=== PATIENT | female | born 1950 | race Caucasian/White ===

== ENCOUNTER 2016-10-19 18:33 | Observation (INO) | payer MEDICARE, MEDICAID ==
[~2016-10-19] VITALS: Ht 167.6 cm; Wt 81.6 kg
[~2016-10-19 18:33] MED LIST: ACET325T51 PO; AMLO5TAB2 PO; ASCO-294 PO; ASPI81TA3 PO; ATOR10TA66 PO; BACL20TA PO; BISA10SU9 RC; CALC-467 PO; CARB15DR47 BOTH_EARS; CHLO1LIQ2 PO; CHOL10002 PO; CRAN405C PO; CRB200T PO; DESO15CR25 TOP; DOCU250C2 PO; DULO60CA61 PO; FERR-83 PO; FLUT16SP2 NS; GUAI5SYR PO; HYDR-4150 PO; INSU100C8 SUBQ; INSU100V7 SUBQ; KETO120S3 TOPICAL; LIDO28.35 TOP; LISI-567 PO; LORA10TA7 PO; MAGN400O4 PO; METO-272 PO; MULT-185 PO; OMEP-113 PO; PHN100C PO; POLY17PO6 PO; PREG75CA PO
[2016-10-19 18:43] VITALS: BP 146/67; PULSE 100; RESP 15; O2SAT 100
--- NOTE | 2016-10-19 18:47 | ED.REPORT ---
HPI-Seizure Date of Service Oct 19, 2016 ED Provider: Amalia Durán MD A 65 year old female with a history of hypertension, diabetes, MS, brain tumor removal, neoplasms of multiple organs, and seizures is brought to the ED via EMS due to a seizure. The pt lives at [facility], and has seizures regularly per staff. Staff became concerned today because the pt had 3 to 4 seizures in the morning and one later in the day that seemed worse than usual. She is able to speak at baseline, but is only nodding in the ED. The pt had a procedure on 10/17/2016 at [facility] for brain tumor removal. History is limited due to pt condition. Nursing Notes Stated Complaint: SEIZURES Chief Complaint: Seizure Nursing Notes Reviewed: Yes Allergies: Coded Allergies: Contrast Media (Verified Allergy, Severe, 10/19/16) ampicillin sodium (Verified Allergy, Severe, 10/19/16) povidone (Verified Allergy, Severe, 10/19/16) sulbactam sodium (Verified Allergy, Severe, 10/19/16) codeine (Verified Allergy, Mild, CANNOT REMEMBER, 10/19/16) pneumococcal vaccine (Verified Allergy, Mild, 10/19/16) povidone-iodine (Verified Allergy, Unknown, 10/19/16) soap (Verified Allergy, Unknown, 10/19/16) sulfamethoxazole (Verified Allergy, Unknown, 10/19/16) trimethoprim (Verified Allergy, Unknown, 10/19/16) Scheduled Amlodipine (Amlodipine) 5 Mg Tablet 5 MG PO DAILY Ascorbate Calcium (Vitamin C) 500 Mg Tablet 500 MG PO DAILY Aspirin Chew (Aspirin Chew) 81 Mg Tab.chew 81 MG PO DAILY Atorvastatin Calcium (Atorvastatin Calcium) 10 Mg Tablet 10 MG PO QPM Baclofen (Baclofen) 20 Mg Tablet 20 MG PO Q6 12AM,6AM,12PM,6PM. Calcium Carbonate/Vitamin D3 (Calcarb 600 W-Vitamin D Tab) 1 Each Tablet 1 EACH PO BID Carbamazepine (Carbamazepine) 200 Mg Tab 200 MG PO BID Carbamide Peroxide (Carbamide Peroxide) 15 Ml Drops 4 DRP BOTH_EARS MONTHLY MONTHLY EAR DROPS; INSTILL 4 DROPS IN EACH EAR FOR 3 DAYS THEN ON DAY 4 FLUSH WITH WARM H2O IN PM. Chlorhexidine (Chlorhexidine Flavor) 1 Ml Liquid 5 ML PO BID 0.12% RINSE. SWISH AND SPIT. Cholecalciferol (Vitamin D3) 1,000 Unit Tablet 3,000 UNIT PO DAILY Cranberry Extract (Cranberry) 405 Mg Capsule 810 MG PO BID Docusate Sodium (Docusate Sodium) 250 Mg Capsule 250 MG PO BID Duloxetine (Duloxetine) 60 Mg Capsule.dr 60 MG PO DAILY Ferrous Sulfate (Ferrous Sulfate) 325 Mg Tablet 325 MG PO TID Hydrocodone/Acetaminophen (Vona 5-325 Tablet) 1 Each Tablet 1 EACH PO QID Insulin Aspart (NovoLOG U100 Insulin Vial) 100 U/Ml U 28 UNIT SUBQ QAM WITH BREAKFAST. Insulin Aspart (NovoLOG U100 Insulin Vial) 100 U/Ml U 38 UNIT SUBQ DAILYWL Insulin Aspart (NovoLOG U100 Insulin Vial) 100 U/Ml U 40 UNIT SUBQ DAILYWD Insulin Glargine (Lantus U100 Insulin Vial) 100 Unit/Ml Vial 38 UNIT SUBQ QAM Insulin Glargine (Lantus U100 Insulin Vial) 100 Unit/Ml Vial 30 UNIT SUBQ DAILYWD Ketoconazole (Ketoconazole) 120 Ml Shampoo 1 APPLIC TOPICAL [id number] Lisinopril (Lisinopril) 20 Mg Tablet 20 MG PO DAILY Metoprolol Succinate ER (Metoprolol Succinate ER) 50 Mg Tab.er.24h 50 MG PO Q12 Multivitamin with Minerals (Multivitamins with Minerals) 1 Each Tablet 1 EACH PO DAILY Omeprazole Magnesium (Omeprazole) 20 Mg Capsule.dr 20 MG PO DAILY Phenytoin Sodium ER (Dilantin) 100 Mg Capsule 300 MG PO HS Phenytoin Sodium Extended (Phenytoin Sodium Extended) 200 Mg Capsule 400 MG PO QPM Pregabalin (Lyrica) 75 Mg Capsule 75 MG PO TID 8AM,12PM,8PM. Scheduled PRN Acetaminophen (Acetaminophen) 325 Mg Tablet 650 MG PO Q4 PRN PRN For Pain Bisacodyl (Bisacodyl Rectal) 10 Mg Supp.rect 10 MG RC DAILY PRN PRN For Constipation Desonide (Desonide Cream) 15 Gm Cream..g. 0.05 % TOP DAILY PRN PRN RASH 1 TIME A DAY TWO DAYS PER WEEK NEEDED. Fluticasone Propionate (Flonase Nasal) 16 Gm [place].susp 2 SPRAYS NS DAILY PRN PRN ALLERGIES Guaifenesin/Dextromethorphan (Guaifenesin Dm Syrup) 5 Ml Syrup 10 ML PO Q4 PRN PRN For Cough Lidocaine HCl (Lidocaine HCl) 28.35 Gm Cream..g. 4 % TOP DAILY PRN PRN 1 HR PRE CATH ACCESS APPLY TOPICALLY TO CATH SITE 1 HOUR BEFORE ACCESS. Loratadine (Loratadine) 10 Mg Tablet 10 MG PO DAILY PRN PRN ALLERGIES Magnesium Hydroxide (Milk of Magnesia) 400 Mg/5 Ml Oral.susp 30 ML PO DAILY PRN PRN For Constipation Polyethylene Glycol 3350 (Miralax) 17 Gm Powd.pack 17 GM PO Q3DAYS PRN PRN For Constipation General Time Seen by Provider: 18:46 Chief Complaint Chief Complaint: Seizure, generalized Hx Obtained From: EMS Arrived By: Ambulance Onset Occurred: More than a week ago... Recent Healthcare: Recent doctor visit, Recent hospitalization Similar Sx Previous: Yes Past Medical History Past Medical History 1. History of severe sepsis with shock, requiring pressors, Fever, lactic acidosis and encephalopathy resolved. 2. History of complicated urinary tract infection due to suprapubic catheter with multi-drug resistant organisms. 3. Multiple sclerosis with paraplegia and right sided deficits 4. Depression. Patient is on Cymbalta. 5. Chronic neuropathy. 6. Acute renal injury, likely acute tubular necrosis from septic shock, resolved. Patient's BUN and creatinine are normal. 7. History of hypertension. 8. Type 2 insulin dependent diabetes mellitus. 9. Chronic constipation with requiring manual disimpaction 12/02/14 10. Atonic bowel chronic 11. Atonic bladder chronic 12. MRSA nasal colonization. 13. chronic anemia 14. chronic contracture pain, wheelchair bound Past Surgical History Suprapubic catheter brain tumor removal Smoking History Former Smoker Social History Lives at [facility] Other Social History: Lives in longterm, Local resident Ambulatory Status Wheelchair Review of Systems Unable to Obtain ROS Patient condition (seizing, postictal) Physical Exam Initial Vital Signs Vital Signs (First) Date Time Temp Pulse Resp B/P Pulse Ox O2 Delivery O2 Flow Rate FiO2 10/19/16 18:43 100 15 146/67 100 Room Air 10/19/16 19:00 36.8 4 Initial VS: Reviewed, Vital signs abnormal actively seizing with nystagmus upon arrival in room localized to face Neck: Atraumatic, Supple Respiratory / Chest: Atraumatic, Breath sounds = bilat, No respiratory distress diminished breath sounds bilaterally Cardiovascular: Regular rhythm, Heart sounds NL Heart Rate / Rhythm: Positive: Tachycardia seizing, postictal Head / Eyes: Atraumatic, Normocephalic ENT: Atraumatic, Airway patent, Mucous membranes moist Abdomen: Atraumatic, Soft Upper Extremity / MS: Atraumatic Lower Extremity / Pelvis / MS: Atraumatic Skin: Atraumatic, Color NL, No rash, Warm, Dry seizing, postictal Back: Atraumatic Interpretation & Diagnostics Lab Results Interpretation Result Diagram: 10/19/16 1722 10/20/16 0435 Test 10/19/16 17:22 White Blood Count 11.5th/mm3 (3.8-10.1) Red Blood Count 4.98mil/mm3 (3.90-5.20) Hemoglobin 14.5g/dL (12.0-15.6) Hematocrit 43.7% (35.0-46.0) Mean Corpuscular Volume 87.8fL (81-100) Mean Corpuscular Hemoglobin 29.1pg (27.0-35.0) Mean Corpuscular Hemoglobin Concent 33.2% (32.0-37.0) Red Cell Distribution Width 15.5% (12.3-15.4) Platelet Count 177bil/L (150-400) Neutrophils (%) (Auto) 47.1% (40-74) Lymphocytes (%) (Auto) 42.3% (14-46) Monocytes (%) (Auto) 8.9% (4-12) Eosinophils (%) (Auto) 1.1% (0-5) Basophils (%) (Auto) 0.3% (0-3) Phenytoin (Dilantin) Level 5.7uG/mL (10.0-20.0) CT Head Interpretation IMPRESSION: 1. Left parietal mass with surrounding vasogenic edema is not significantly changed in size compared to CT scan obtained at 09 such as a 2016. 2. No acute intracranial hemorrhage. Dictated by: Jacqueline Bedoya MD, PhD on 10/19/2016 at 20:20 Approved by: Jacqueline Bedoya MD, PhD on 10/19/2016 at 20:20 Interpretation / Wet Read by: Interpret - Radiologist Re-Eval/Medical Decision Med Decision/Clinical Course Care assumed at midnight. Repeat blood gas shows improvement of the carbon dioxide to baseline. Patient is now bit more responsive but still nonverbal, as has been the case postop. Admitted for further observation to the medicine service. Additional fosphenytoin given to put her into the therapeutic range. This patient presents with multiple seizures today, according to her daughter she has not been having seizures daily and she is quite verbal. She had a seizure here in the emergency department. She was given 2 mg of Ativan. The patient's evaluation here reveals some vasogenicedema around the tumor however it is within normal limits, films were sent down to [facility] and they were reviewed and compared with other films. The patient was given dexamethasone and is subtherapeutic on Dilantin for which she was given 500 mg IV. In speaking with the resident, who spoke with [facility] attending specialist, it is felt the patient was safe for discharge with medicaiton changes. I also spoke with Dr. Sanchez, her primary care physician and he will follow-up with the patient. The patient seemed harder to wake than she should be, I was concerned about hypercapnea due hypoventilation related to the ativan she was given, the gas confirmed an acute respiratory acidosis. She had her oxygen decreased and within about an hour the patient was already becoming more responsive. I was going to admit the patient overnight for observation and further monitoring however we do not have a bed available. The patient was signed out to Dr. Velázquez, he will follow-up with a repeat venous gas and if it is improving and the patient will be discharged back to [facility]. The neuo/onc and radiation oncologist had recommended a dexamethasone taper of 4 mg 3 times a day for 4 days then 4 mg twice a day for 4 days then 4 mg daily for 4 days and lastly 2 mg daily for 4 days. They also recommended increasing her Dilantin to the extended release 400 mg at bedtime. The patient will need to have her glucoses monitored and a repeat Dilantin level, Dr. Longo is aware. Source of Hx: Old records Re-Evaluation/Progress #1: Time of Eval: 22:42 Re-Evaluation/Progress Note: Spoke with family regarding pt's possible transfer. They are updated on pt condition. The family understands the plan. Re-Evaluation/Progress #2: Time of Eval: 23:18 Patient Status: Condition improved Re-Evaluation/Progress Note: Pt rechecked, who is sleeping comfortably. Family is informed of [facility] consultation and the plan for discharge. Pt's family understands and agrees with the plan. All questions are addressed at this time. Re-Evaluation/Progress #3: Time of Eval: 00:06 Patient Status: Condition unchanged Re-Evaluation/Progress Note: Pt rechecked, who remains asleep. Pt's family is informed of blood gas results and the need for admission. Family understands and agrees with the plan. All questions are addressed at this time. Consultation #1: Call Returned at: 20:52 Front Desk Assistant: Agrees with eval Note: Spoke with [facility] [place] regarding pt's case. [facility] will review pt's case and call back. Consultation #2: Call Returned at: 22:10 Front Desk Assistant: Agrees with eval, Agrees with plan Note: Spoke with Dr. Daniels, [facility] neurology, regarding pt's case. Dr. Daniels will review imaging, consult with her attending, and call back. Consultation #3: Call Returned at: 23:14 Front Desk Assistant: Agrees with eval, Agrees with plan Note: Spoke with [facility] regarding pt's case. [facility] recommends discharge with medication alterations. Consultation #4: Referral / Consult Name: Jerry Longo DO Consulted With: Primary care physician Requested Call at: 23:21 Note: Spoke with Dr. Longo, pt's PCP, regarding pt's case. Dr. Longo agrees with the plan for admission. Counseled Regarding: Diagnosis, Lab results, Need for admission Discharge & Departure Impression: Primary Impression: Seizure Additional Impressions: Vasogenic brain edema Respiratory acidosis Subtherapeutic serum dilantin level Disposition: ADMITTED TO HOSPITAL Discharge Condition All VS Reviewed: Yes Condition: Stable Referrals: Noa Novoa MD (PCP) Jerry Longo DO Care Transferred to: Dr Velázquez. Care Transferred at: 00:48 Scribe Attestation Portions of this note were transcribed by Anabel Bishop. I, Dr. Durán personally performed the history, physical exam and medical decision-making; I reviewed and confirmed the accuracy of the information in the transcribed note. Signed by: Cayetano Ellis, 10/20/2016, 00:12 copies to: Jerry Longo DO; Noa Novoa MD, Jena M MD Oct 19, 2016 18:47 ANABEL BISHOP Oct 19, 2016 19:20 Darinel Velázquez MD Oct 20, 2016 05:53 Primary Impression: Seizure Additional Impressions: Vasogenic brain edema Respiratory acidosis Disposition: ADMITTED TO HOSPITAL Discharge Condition All VS Reviewed: Yes Condition: Stable Referrals: Noa Novoa MD (PCP) Jerry Longo DO Care Transferred to: Dr Velázquez. Care Transferred at: 00:48 Scribe Attestation Portions of this note were transcribed by Anabel Bishop. I, Dr. Durán personally performed the history, physical exam and medical decision-making; I reviewed and confirmed the accuracy of the information in the transcribed note. Signed by: Cayetano Ellis, 10/20/2016, 00:12 copies to: Jerry Longo DO; Noa Novoa MD, Jena M MD Oct 19, 2016 18:47 ANABEL BISHOP Oct 19, 2016 19:20
[2016-10-19 19:00] VITALS: BP 146/67; PULSE 110; RESP 17; O2SAT 100
[2016-10-19 19:45] VITALS: BP 138/76; PULSE 116; RESP 18; O2SAT 97
[2016-10-19] MEDS ORDERED: 0.9% Sodium Chloride 1,000 ML IV ONE (19:45)
[2016-10-19 20:00] LABS: BASOPHILS % (AUTO) 0.3 % (0-3); EOSINOPHILS % (AUTO) 1.1 % (0-5); MONOCYTES % (AUTO) 8.9 % (4-12); Mean Corpuscular Hemoglobin 29.1 pg (27.0-35.0); Mean Corpuscular Volume 87.8 fL (81-100); NEUTROPHILS % (AUTO) 47.1 % (40-74); Platelet Count 177 bil/L (150-400)
[2016-10-19 20:08] LABS: Magnesium 1.4 mg/dL (1.6-2.6)
--- NOTE | 2016-10-19 20:21 | DRSVH ---
PROCEDURE: CT BRAIN WITHOUT CONTRAST ([id number]) INDICATIONS: Sz, tumor TECHNIQUE: Noncontrast 4.5 mm thick angled axial sections acquired from the foramen magnum to the vertex, with c oronal reformats. COMPARISON: [facility], MR, MR BRAIN W&WO CON, 08/26/2016, 14:04. Outside Film, CT, CT BRAIN WO CON, 07/17/2016, 12:16. Outside Film, MR, MR BRAIN W&WO CON, 05/20/2016, 16:13. [facility], CT, CT BRAIN WO CON, 05/17/2016, 14:54. [facility], CT, CT BRAIN WO CON, 03/08, 4:03. [facility], CR, CHEST 1VW (PORTABLE), 09/17/2013, 10:32. [facility], MR, BRAIN W/O CONTRAST, 09/14/2013, 10:25. [facility], CT, BRAIN W/O CONTRAST, , 0:41. [facility], CT, BRAIN W/O CONTRAST, 12/15/2006, 10:55. [facility] , MR, BRAIN W&W/O CONTRAST, 09/16/2002, 13:03. FINDINGS: Image quality: Excellent. CSF spaces: Basal cisterns are patent. No extra-axial fluid collections. The ventricles are symmet lara in size and shape. Brain: Approximately 2.9 x 1. Left parietal mass is surrounded by vasogenic edema. No acute intrac ranial hemorrhage. .6 cm left parietal mass There is cerebral volume loss for age, with resultant ve ntricular and sulcal prominence. There are periventricular and deep white matter chronic small vesse l ischemic changes. There is intracranial internal carotid artery and right vertebral artery. athero sclerosis. Skull and face: Postsurgical changes compatible with left frontoparietal craniotomy are noted. Sinuses: Visualized sinuses and mastoids are clear. IMPRESSION: 1. Left parietal mass with surrounding vasogenic edema is not significantly changed in size compared to CT scan obtained at 09 such as a 2016. 2. No acute intracranial hemorrhage. Dictated by: Jacqueline Bedoya MD, PhD on 10/19/2016 at 20:20 Approved by: Jacqueline Bedoya MD, PhD on 10/19/2016 at 20:20
[2016-10-19] MEDS ORDERED: Magnesium Sulf 2 Gm/50mL Water 2 GM in IV Premix 1 EACH IV ONE (20:30)
[2016-10-19] MEDS ORDERED: Valproate Sodium Inj 500 MG in Dextrose 5% 50 ML IV ONE (20:30)
[2016-10-19] MEDS ORDERED: Dexamethasone Inj 10 MG in 0.9% Sodium Chloride-Pha MIX 50 ML IV ONE (20:30)
[2016-10-19 21:50] VITALS: BP 142/78; PULSE 110; RESP 16; O2SAT 96
[2016-10-19 23:00] VITALS: BP 138/84; PULSE 106; RESP 18; O2SAT 96
[2016-10-19] MEDS ORDERED: PHEN200C3 PO (23:30)
--- NOTE | 2016-10-19 23:53 | ABG ---
DateTimeAnalyzed 23:47:00 -_ pH ____7.274 - pCO2 ___63.0__ -mmHg pO2 ___58.3__ -mmHg HCO3- ___28.3__ -mmol/L ABE ____0.2__ -mmol/L tHb ___14.4__ -g/dL O2Hb ___85.0__ -% COHb ____0.4__ -% MetHb ____1.5__ -% sO2 ___86.6__ -% FIO2 ___35.0__ -% Drawn By MM - Date/Time Notified____ 23:52:00 -_ Liter_Flow ____4.0__ -L/min Oxygen Device 1 __CANNULA - Notified Whom DEMETRIUS, HYUN - Age 59 -years B 753 -mmHg tO2 ___17.1__ -Vol% OrderingPhysicianInitials JL - Emigdio test N/A -
[2016-10-20] VITALS (10 sets, daily range): BP systolic 110–145; BP diastolic 53–73; PULSE 88–117; RESP 18–22; O2SAT 93–97
[2016-10-20] MEDS ORDERED: Albuterol-Ipratropium 3 mL Inhalation Solution NEB ONE (00:05)
[2016-10-20] MEDS ORDERED: Fosphenytoin Inj 500 mgPE in 0.9% Sodium Chloride 50 ML IV ONE (01:15)
--- NOTE | 2016-10-20 01:53 | ABG ---
DateTimeAnalyzed 01:47:00 -_ pH ____7.408 - pCO2 ___32.9__ -mmHg pO2 243 -mmHg HCO3- ___20.3__ -mmol/L ABE ___-3.2__ -mmol/L tHb ___11.0__ -g/dL O2Hb ___95.9__ -% COHb ____1.5__ -% MetHb ____1.4__ -% sO2 ___98.8__ -% FIO2 ___21.0__ -% Drawn By MM - Date/Time Notified____ 01:53:00 -_ Liter_Flow ____2.0__ -L/min Oxygen Device 1 __CANNULA - Notified Whom DR Velázquez - Age 59 -years B 754 -mmHg tO2 ___15.4__ -Vol% Emigdio test N/A -
[2016-10-20] MEDS ORDERED: guaiFENesin DM 200-20 mg/10 mL Syrup PO PRN (02:50)
[2016-10-20] MEDS ORDERED: Magnesium Hydroxide 355 mL Oral Suspension PO PRN (02:50)
[2016-10-20] MEDS ORDERED: Polyethylene Glycol (PEG) 17 Gm Powder PO PRN ×2 (02:50→02:55)
[2016-10-20] MEDS ORDERED: Fluticasone 0.05% 15 Spray/2 Gm 16 Gm Nasal Spray NOSTRIL PRN (02:50)
[2016-10-20] MEDS ORDERED: Alum-Mag Hydrox-Simeth 30 mL Suspension PO PRN (02:55)
[2016-10-20] MEDS ORDERED: Ondansetron 2 mg/mL 2 mL Inj IVPUSH PRN (02:55)
--- NOTE | 2016-10-20 03:17 | PCM.HPMED ---
Subjective Date of Service Oct 20, 2016 Primary Provider: Admitting Physician: Primary Care Physician: Noa Novoa MD Attending Physician: Admit Status: From the Emergency Department, 23-Hour Observation Chief Complaint: Multiple seizures today History of Present Illness: This is a 65-year-old female who has a history of multiple sclerosis history of meningioma with removal and recent gamma knife surgery at [facility] on Thursday. She normally has seizures and is currently a resident of [facility]. However today she had 3-4 seizures in the morning and one later in the day that seemed worse than usual and more prolonged. And she was brought in to the emergency room for further evaluation here. She was found to have a subtherapeutic Dilantin level at 0.7. She was given a load of IV Dilantin in the emergency room where studies included a CT of head which did reveal left parietal mass with surrounding vasogenic edema which is not significantly changed in comparison to previous acute intracranial hemorrhage noted. His findings were discussed by ER M.D. with [facility] recommended a dexamethasone taper 4 mg 3 times a day for 4 days then 4 mg twice a day for 4 days then 1 correction 4 mg daily for 4 days and lastly 2 mg daily for 4 days. They also recommended increasing her Dilantin to the extended release 400 mg at bedtime. They did suggest that it would be fine to have her discharged back to [facility]. However the ER felt more comfortable putting her into observation and she still postictal. She was also found to have some respiratory acidosis and initially I recommended BiPAP however with further monitoring per ER M.D. her blood gas no longer showed a respiratory acidosis. Hence will be admitted to a regular bed for observation. Review of Systems: Unobtainable secondary to patient's post ictal state Allergies Coded Allergies: Contrast Media (Verified Allergy, Severe, 10/19/16) ampicillin sodium (Verified Allergy, Severe, 10/19/16) povidone (Verified Allergy, Severe, 10/19/16) sulbactam sodium (Verified Allergy, Severe, 10/19/16) codeine (Verified Allergy, Mild, CANNOT REMEMBER, 10/19/16) pneumococcal vaccine (Verified Allergy, Mild, 10/19/16) povidone-iodine (Verified Allergy, Unknown, 10/19/16) soap (Verified Allergy, Unknown, 10/19/16) sulfamethoxazole (Verified Allergy, Unknown, 10/19/16) trimethoprim (Verified Allergy, Unknown, 10/19/16) Home Medications Scheduled Amlodipine (Amlodipine) 5 Mg Tablet 5 MG PO DAILY Ascorbate Calcium (Vitamin C) 500 Mg Tablet 500 MG PO DAILY Aspirin Chew (Aspirin Chew) 81 Mg Tab.chew 81 MG PO DAILY Atorvastatin Calcium (Atorvastatin Calcium) 10 Mg Tablet 10 MG PO QPM Baclofen (Baclofen) 20 Mg Tablet 20 MG PO Q6 12AM,6AM,12PM,6PM. Calcium Carbonate/Vitamin D3 (Calcarb 600 W-Vitamin D Tab) 1 Each Tablet 1 EACH PO BID Carbamazepine (Carbamazepine) 200 Mg Tab 200 MG PO BID Carbamide Peroxide (Carbamide Peroxide) 15 Ml Drops 4 DRP BOTH_EARS MONTHLY MONTHLY EAR DROPS; INSTILL 4 DROPS IN EACH EAR FOR 3 DAYS THEN ON DAY 4 FLUSH WITH WARM H2O IN PM. Chlorhexidine (Chlorhexidine Flavor) 1 Ml Liquid 5 ML PO BID 0.12% RINSE. SWISH AND SPIT. Cholecalciferol (Vitamin D3) 1,000 Unit Tablet 3,000 UNIT PO DAILY Cranberry Extract (Cranberry) 405 Mg Capsule 810 MG PO BID Docusate Sodium (Docusate Sodium) 250 Mg Capsule 250 MG PO BID Duloxetine (Duloxetine) 60 Mg Capsule.dr 60 MG PO DAILY Ferrous Sulfate (Ferrous Sulfate) 325 Mg Tablet 325 MG PO TID Hydrocodone/Acetaminophen (Chelsea 5-325 Tablet) 1 Each Tablet 1 EACH PO QID Insulin Aspart (NovoLOG U100 Insulin Vial) 100 U/Ml U 28 UNIT SUBQ QAM WITH BREAKFAST. Insulin Aspart (NovoLOG U100 Insulin Vial) 100 U/Ml U 38 UNIT SUBQ DAILYWL Insulin Aspart (NovoLOG U100 Insulin Vial) 100 U/Ml U 40 UNIT SUBQ DAILYWD Insulin Glargine (Lantus U100 Insulin Vial) 100 Unit/Ml Vial 38 UNIT SUBQ QAM Insulin Glargine (Lantus U100 Insulin Vial) 100 Unit/Ml Vial 30 UNIT SUBQ DAILYWD Ketoconazole (Ketoconazole) 120 Ml Shampoo 1 APPLIC TOPICAL [id number] Lisinopril (Lisinopril) 20 Mg Tablet 20 MG PO DAILY Metoprolol Succinate ER (Metoprolol Succinate ER) 50 Mg Tab.er.24h 50 MG PO Q12 Multivitamin with Minerals (Multivitamins with Minerals) 1 Each Tablet 1 EACH PO DAILY Omeprazole Magnesium (Omeprazole) 20 Mg Capsule.dr 20 MG PO DAILY Phenytoin Sodium ER (Dilantin) 100 Mg Capsule 300 MG PO HS Phenytoin Sodium Extended (Phenytoin Sodium Extended) 200 Mg Capsule 400 MG PO QPM Pregabalin (Lyrica) 75 Mg Capsule 75 MG PO TID 8AM,12PM,8PM. Scheduled PRN Acetaminophen (Acetaminophen) 325 Mg Tablet 650 MG PO Q4 PRN PRN For Pain Bisacodyl (Bisacodyl Rectal) 10 Mg Supp.rect 10 MG RC DAILY PRN PRN For Constipation Desonide (Desonide Cream) 15 Gm Cream..g. 0.05 % TOP DAILY PRN PRN RASH 1 TIME A DAY TWO DAYS PER WEEK NEEDED. Fluticasone Propionate (Flonase Nasal) 16 Gm Homer.susp 2 SPRAYS NS DAILY PRN PRN ALLERGIES Guaifenesin/Dextromethorphan (Guaifenesin Dm Syrup) 5 Ml Syrup 10 ML PO Q4 PRN PRN For Cough Lidocaine HCl (Lidocaine HCl) 28.35 Gm Cream..g. 4 % TOP DAILY PRN PRN 1 HR PRE CATH ACCESS APPLY TOPICALLY TO CATH SITE 1 HOUR BEFORE ACCESS. Loratadine (Loratadine) 10 Mg Tablet 10 MG PO DAILY PRN PRN ALLERGIES Magnesium Hydroxide (Milk of Magnesia) 400 Mg/5 Ml Oral.susp 30 ML PO DAILY PRN PRN For Constipation Polyethylene Glycol 3350 (Miralax) 17 Gm Powd.pack 17 GM PO Q3DAYS PRN PRN For Constipation PMH Past Medical History 1. History of severe sepsis with shock, requiring pressors, Fever, lactic acidosis and encephalopathy resolved. 2. History of complicated urinary tract infection due to suprapubic catheter with multi-drug resistant organisms. 3. Multiple sclerosis with paraplegia and right sided deficits 4. Depression. Patient is on Cymbalta. 5. Chronic neuropathy. 6. Acute renal injury, likely acute tubular necrosis from septic shock, resolved. Patient's BUN and creatinine are normal. 7. History of hypertension. 8. Type 2 insulin dependent diabetes mellitus. 9. Chronic constipation with requiring manual disimpaction 12/02/14 10. Atonic bowel chronic 11. Atonic bladder chronic 12. MRSA nasal colonization. 13. chronic anemia 14. chronic contracture pain, wheelchair bound Past Surgical History Suprapubic catheter brain tumor removal Social History Hx Alcohol Use: No Hx Substance Use: No Hx Tobacco Use: No Smoking Status: Former Smoker Living Arrangement: [facility] Exam Vital Signs Vital Sign - Last Date Time Temp Pulse Resp B/P Pulse Ox O2 Delivery O2 Flow Rate FiO2 10/20/16 01:12 37.4 116 22 126/53 95 Nasal Cannula 2 Intake and Output 10/19/16 10/19/16 10/20/16 Cumulative From/Thru 15:00 23:00 07:00 10/19/16 19:55 - 10/19/16 21:05 Intake Total 1150 ml 1150 ml Balance 1150 ml 1150 ml Intake IV Total 1150 ml 1150 ml Exam Constitutional: Middle-aged woman who looks older than her stated age Head: No acute injuries to her head Eyes: Difficult to get her to open up her eyes pupils are round and reactive bilaterally Mouth: Dry mucosa neck: No adenopathy chest: Clear to auscultation except decreased breath sounds at her bases bilaterally cor: Regular rate and rhythm S1-S2 Abdomen: Soft bowel sounds present Extremities: No pedal edema Psych: Unable to evaluate Skin: No rashes noted Neuro: She does arouse to some voice and painful stimuli oriented 0 Does have some contractions of her right upper arm and lower extremities Lab and Diagnostics Labs Urine analysis pending at the time of this dictation Laboratory Tests 72 Hours Test 10/19/16 17:22 White Blood Count 11.5th/mm3 (3.8-10.1) Red Blood Count 4.98mil/mm3 (3.90-5.20) Hemoglobin 14.5g/dL (12.0-15.6) Hematocrit 43.7% (35.0-46.0) Mean Corpuscular Volume 87.8fL (81-100) Mean Corpuscular Hemoglobin 29.1pg (27.0-35.0) Mean Corpuscular Hemoglobin Concent 33.2% (32.0-37.0) Red Cell Distribution Width 15.5% (12.3-15.4) Platelet Count 177bil/L (150-400) Neutrophils (%) (Auto) 47.1% (40-74) Lymphocytes (%) (Auto) 42.3% (14-46) Monocytes (%) (Auto) 8.9% (4-12) Eosinophils (%) (Auto) 1.1% (0-5) Basophils (%) (Auto) 0.3% (0-3) Sodium Level 136mEq/L (134-144) Potassium Level 4.1mEq/L (3.5-5.2) Chloride Level 97mEq/L (97-108) Carbon Dioxide Level 26mmol/L (18-29) Blood Urea Nitrogen 9mg/dL (8-27) Creatinine 0.53mg/dL (0.57-1.00) Estimat Glomerular Filtration Rate 167mL/min (>59) Glucose Level 250mg/dL (60-99) Calcium Level 9.0mg/dL (8.5-10.1) Magnesium Level 1.4mg/dL (1.6-2.6) Phenytoin (Dilantin) Level 5.7uG/mL (10.0-20.0) Result Diagram: 10/19/16172110/19/16 172 X-Rays, CTs and MRIs Patient Name: ALBIN ASHBY MR#: [id number] [place] [facility] [place]ing Phys: Amalia Durán MD Date of Service: 10/19/161943 PROCEDURE: CT BRAIN WITHOUT CONTRAST ([id number]) INDICATIONS: Sz, tumor TECHNIQUE: Noncontrast 4.5 mm thick angled axial sections acquired from the foramen magnum to the vertex, with coronal reformats. COMPARISON: [facility], MR, MR BRAIN W&WO CON, 08/26/2016, 14:04. Outside Film, CT, CT BRAIN WO CON, 07/17/2016, 12:16. Outside Film, MR, MR BRAIN W&WO CON, 05/20/2016, 16:13. [facility], CT, CT BRAIN WO CON, 05/17/2016, 14:54. [facility], CT, CT BRAIN WO CON, 03/08/2016, 4: 03. [facility], CR, CHEST 1VW (PORTABLE), 09/17/2013, 10:32. [facility], MR, BRAIN W/O CONTRAST, 09/14/2013, 10:25. [facility], CT, BRAIN W/O CONTRAST, 09/14/2013, 0:41. [facility], CT, BRAIN W/O CONTRAST, 12/15/2006, 10:55. [facility] , MR, BRAIN W&W/O CONTRAST, 09/16/2002, 13:03. FINDINGS: Image quality: Excellent. CSF spaces: Basal cisterns are patent. No extra-axial fluid collections. The ventricles are symmetric in size and shape. Brain: Approximately 2.9 x 1. Left parietal mass is surrounded by vasogenic edema. No acute intracranial hemorrhage. .6 cm left parietal mass There is cerebral volume loss for age, with resultant ventricular and sulcal prominence. There are periventricular and deep white matter chronic small vessel ischemic changes. There is intracranial internal carotid artery and right vertebral artery. atherosclerosis. Skull and face: Postsurgical changes compatible with left frontoparietal craniotomy are noted. Sinuses: Visualized sinuses and mastoids are clear. IMPRESSION: 1. Left parietal mass with surrounding vasogenic edema is not significantly changed in size compared to CT scan obtained at 09 such as a 2016. 2. No acute intracranial hemorrhage. Dictated by: Jacqueline Bedoya MD, PhD on 10/19/2016 at 20:20 Approved by: Jacqueline Bedoya MD, PhD on 10/19/2016 at 20:20 Chest x-ray is pending 12-lead ECG Pending Additional Diagnostics: [facility] ALBIN ASHBY 1950 Female DateTimeAnalyzed 23:47:00 -_ pH ____7.274 - pCO2 ___63.0__ -mmHg pO2 ___58.3__ -mmHg HCO3- ___28.3__ -mmol/L ABE ____0.2__ -mmol/L tHb ___14.4__ -g/dL O2Hb ___85.0__ -% COHb ____0.4__ -% MetHb ____1.5__ -% sO2 ___86.6__ -% FIO2 ___35.0__ -% Drawn By MM - Date/Time Notified____ 23:52:00 -_ Liter_Flow ____4.0__ -L/min Oxygen Device 1 __CANNULA - Notified Whom DEMETRIUS, ASA'CARSARMIUT - Age 59 -years B 753 -mmHg tO2 ___17.1__ -Vol% OrderingPhysicianInitials JL - Emigdio test N/A - [facility] 1950 Female DateTimeAnalyzed 01:47:00 -_ pH ____7.408 - pCO2 ___32.9__ -mmHg pO2 243 -mmHg HCO3- ___20.3__ -mmol/L ABE ___-3.2__ -mmol/L tHb ___11.0__ -g/dL O2Hb ___95.9__ -% COHb ____1.5__ -% MetHb ____1.4__ -% sO2 ___98.8__ -% FIO2 ___21.0__ -% Drawn By MM - Date/Time Notified____ 01:53:00 -_ Liter_Flow ____2.0__ -L/min Oxygen Device 1 __CANNULA - Notified Whom DR Velázquez - Age 59 -years B 754 -mmHg tO2 ___15.4__ -Vol% Emigdio test N/A - Assessment & Plan # Multiple seizures with seizure history, present on admission, acute on chronic Currently postictal place and seizure precautions and observe overnight Patient was given IV Dilantin load will check level in the a.m. Consider increasing her oral dose as mentioned above [facility] was contacted and recommended Decadron titration as noted inHistory of present illness: # Meningioma, subacute, present on admission Currently managed by [facility] neurosurgery Recently underwent gamma knife surgery on Thursday # Type II diabetes, chronic, present on admission Continue her current medication regimen of insulin subcutaneous While postictal and not taking orals we will give IV D5 half-normal saline Monitor 4 times a day blood sugars Also will need to monitor for elevated blood sugar with initiation of Decadron # Hyperlipidemia, chronic, present on admission Continue home medication regimen # Multiple sclerosis, chronic, present on admission Continue current medication regimen once able to take by mouth # DVT prophylaxis We will use SCDs while here # CODE STATUS Unable to locate pulse form at this point hence is full code Will need to get information from [facility] Pain Evaluation: Adequate Pain Control GI Prophylaxis: H2 jami VTE Mechanical Devices: Intermittant Pneumatic CD Resuscitation Status: CPR: Attempt Resuscitation Sadaf Henderson MD Oct 20, 2016 03:17
[2016-10-20] MEDS ORDERED: HYDROcodone-APAP 5-325 mg Tablet PO PRN (03:40)
[2016-10-20 05:12] LABS: Magnesium 1.7 mg/dL (1.6-2.6); Phosphorus 2.8 mg/dL (2.5-4.9); TROPONIN T 0.01 ug/L (0.0-0.011)
[2016-10-20] MEDS: D5 0.45% NaCl + KCl 20 mEq/L 1,000 ML IV SCH ×2 (05:16→11:59)
--- NOTE | 2016-10-20 05:49 | NUR ---
Admit/Mentation/ Pt was admitted to [facility] @ around 0430. Pt is alert and oriented to self but is confused on present situation and don't know what is going on, Tried re-orienting, pt could verbalize understanding but would forget the recent conversation immediately. Noted short term memory loss per assessment. Assessed pt's lower leg for sensation and pt barely feels anything. Pt denies chest pain, SOB, N/V and abd discomfort. IVF administered as ordered of MD. Pressure ulcer protocol initiated. Will put pt on p500 bed. Will continue to monitor.
[2016-10-20] MEDS: Acetaminophen IV 1,000 MG in IV Premix 1 EACH IV PRN ×2 (05:59→11:57)
--- NOTE | 2016-10-20 07:09 | DRSVH ---
PROCEDURE: X-RAY CHEST ONE VIEW, PORTABLE ([id number]) INDICATIONS: 65 year-old female with seizures and hypoventilation. TECHNIQUE: One view of the chest was acquired. COMPARISON: [facility], CR, XR CHEST 1VW (PORTABLE), 05/26/2016, 12:25. [facility], CR, XR CHEST 1VW (PORTABLE), 05/17/2016, 17:14. [facility], CR, XR CHEST 1VW (POR TABLE), 05/17/2016, 14:35. FINDINGS: Surgical changes and devices: Right chest wall Port-A-Cath is again noted, with tip at the cavoatrial junction. Patient is status post right axillary lymph node dissection and cholecystectomy. Lungs and pleura: No pleural effusions or pneumothorax. Lungs are clear. Lung volumes are decrease d. Mediastinum: Mediastinal contours appear normal. Heart size is normal. Bones and chest wall: No suspicious bony lesions. There is persistent asymmetric right hemidiaphrag m elevation. Overlying soft tissues appear unremarkable. IMPRESSION: 1. Decreased lung volumes, without acute cardiopulmonary disease. 2. Persistent right hemidiaphragm elevation they reflect chronic right phrenic nerve dysfunction or u nderlying liver pathology. Dictated by: Darrin Laws M.D. on 10/20/2016 at 7:07 Approved by: Darrin Laws M.D. on 10/20/2016 at 7:07
[2016-10-20] MEDS ORDERED: Pantoprazole 20 mg ER24 Tablet PO SCH (08:30)
[2016-10-20] MEDS ORDERED: Insulin GLARgine 100 Unit/mL Syringe SUBQ SCH ×2 (08:30→17:30)
[2016-10-20] MEDS ORDERED: DULoxetine 30 mg DR Capsule PO SCH (08:30)
[2016-10-20] MEDS ORDERED: Insulin LISPRO 300 Unit/3 mL Inj SUBQ SCH ×3 (08:30→17:30)
[2016-10-20] MEDS ORDERED: Ascorbic Acid 500 mg Tablet PO SCH (08:30)
[2016-10-20] MEDS ORDERED: Dexamethasone 4 mg/mL Inj IVPUSH SCH (08:30)
[2016-10-20] MEDS ORDERED: MeTOProlol XL 50 mg ER24 Tablet PO SCH (08:30)
[2016-10-20] MEDS ORDERED: Chlorhexidine 0.12% 473 mL Oral Solution MUC_MEMBRM SCH (08:30)
[2016-10-20] MEDS ORDERED: CRANBERRY EXTRACT PO SCH (08:30)
[2016-10-20] MEDS ORDERED: carBAMazepine 200 mg Tablet PO SCH (08:30)
[2016-10-20 09:01] LABS: Magnesium 1.7 mg/dL (1.6-2.6)
--- NOTE | 2016-10-20 09:25 | NUR ---
Social Work-initial assessment/ readiness for discharge: Data:See initial assessment. Pt is a 65 y/o female who was admitted on 10/20/16 for respiratory acidosis per H&P. Pt's insurance is [email or web address] and PCP is Noa Novoa MD. EMR Reviewed. SW met with pt at bedside to discuss discharge planning, SW role explained. Pt is alert and oriented x3. Pt resides at [facility]( [facility]) and plans on returning back to [facility] when medically stable. SW placed a call to [facility] and left message regarding pt. Paperwork placed in the chart. SW will continue to follow. Assessment:pt who resides at [facility]. Plan:Pt to discharge back to [facility] when medically stable. SW has left message for admissions regarding pt. Paperwork placed in the chart. SW will continue to follow. DANIELE Aranda Addendum: 10/20/16 at 0930 by KEAGAN MCFADDEN Amended: Links added.
[2016-10-20] MEDS: Calcium Carbonate (Oyster Shell) 500 mg Tablet PO SCH ×2 (10:29→17:07)
[2016-10-20] MEDS: Famotidine Inj 20 MG in IV Premix 1 EACH IV SCH ×2 (11:24→20:44)
[2016-10-20] MEDS: Insulin Human REGular 300 Unit/3 mL Inj SUBQ SCH ×3 (12:01→22:00)
--- NOTE | 2016-10-20 13:31 | NUR ---
Evaluation completed. Please go to "Notes" then click on "Assessments and Notes" (bottom left corner of screen). Then select appropriate discipline tab on top of screen.
[2016-10-20] MEDS ORDERED: 0.9% Sodium Chloride 250 ML ONE (14:59)
[2016-10-20 16:12] LABS: APPEARANCE,URINE CLOUDY (CLEAR,HAZY); COLOR,URINE YELLOW (YELLOW); OCCULT BLOOD,URINE NEGATIVE (NEGATIVE); UROBILINOGEN,URINE NORMAL (NORMAL)
--- NOTE | 2016-10-20 16:56 | NUR ---
Case Management: Observation Brochure explained and provided to patient and her daughter, all questions answered. Geraldine Vale RN
[2016-10-20] MEDS: Dexamethasone 4 mg/mL Inj IVPUSH SCH ×2 (17:07→22:32)
[2016-10-20] MEDS ORDERED: METO25TA6 PO (18:07)
[2016-10-20] MEDS ORDERED: INSLIS SUBQ ×2 (18:07)
[2016-10-20] MEDS ORDERED: CHOL500011 PO (18:07)
[2016-10-20] MEDS ORDERED: LOPE2CAP PO (18:07)
[2016-10-20] MEDS ORDERED: PRAM177L22 TP (18:07)
[2016-10-20] MEDS ORDERED: HYDR-4003 PO (18:07)
[2016-10-20] MEDS ORDERED: [UNRECOGNIZED DRUG - CODE] PO (18:07)
[2016-10-20] MEDS ORDERED: SENN-133 PO (18:07)
[2016-10-20] MEDS ORDERED: PANT40TA3 PO (18:07)
[2016-10-20] MEDS ORDERED: BISA10SU61 RC (18:07)
[2016-10-20] MEDS ORDERED: PHEN300C4 PO (18:07)
[2016-10-20] MEDS ORDERED: DOCU250C2 PO (18:07)
[2016-10-20] MEDS ORDERED: PRAM0.256 PO (18:07)
[2016-10-20] MEDS ORDERED: INSU100V7 SUBQ (18:24)
--- NOTE | 2016-10-20 19:03 | NUR ---
Mentation/gonzalez/blood sugars/meds Pt alert to self, knows shes in a hospital. Pt forgetful, tends to ask same question after ~30 seconds despite question being answered. Dtr in this afternoon and states at baseline pt is A&Ox4. Suprapubic gonzalez patent, draining yellow urine. Pt reports no c/o r/t to gonzalez. Blood sugar this AM 189. Pt had large amount of quick-acting insulin which was held due to NPO status as was lunch large amount of insulin. Noon blood sugar 235. Discussed large amount of insulin with MD who voiced concerns with steroid raising blood sugars and insulin managing that rise. Dinner blood sugar 271, pt had a diet order from lunch so 40 units of insulin given per eMAR, double checked with another RN. Shortly after, admit nurse up to unit and notified this RN that insulin orders and a variety of medications were not matched to what was being given at facility. Rechecked blood sugar at 1800 - 206. Pt asymptomatic and ate dinner. Passed onto oncoming RN to monitor blood sugars and ensure medications are corrected in eMAR prior to administering. Bed in lowest, locked position and call light in reach.
--- NOTE | 2016-10-20 19:03 | NUR ---
home medications/med rec arrived to follow up on patient home medication list as follow up from overnight admit. utilized physician orders from [facility]. noted that date was august 2016. called [facility] to obtain current physician orders or MAR. facility refused to send a MAR. stated "it is against our policy to send a MAR". staff agreed to go over current med list over the phone. went over entire list with restaurant front manager staff Bree and then requested to speak with patient's nurse to confirm. spoke with Edelmira DOUGHERTY and again went over entire list with last dosages included. [facility] minimal discrepancies from physician orders that were sent with patient from August 2016. upon entering home medication list noted that admitting hospitalist had ordered home medications from med rec list last night before it had been updated. Dr. Bruce called and notified and spoke with Dr. Bruce in person regarding the discrepancies in current home medication list and what had been ordered. went over in great detail with Dr. Bruce both verbally and in writing. notified Dr. Bruce that lyrica is QID not TID, Docusate is 250mg po daily, not BID, patient takes metoprolol tartrate 25mg po bid, not succinate 50mg po bid, patient takes pramipexole as a newer medication, vitamin d is 5000units per day not 3000, miralax is prn not scheduled. Dr. Bruce additionally notified that patient no longer takes amlodipine, vitamin c, aspirin, calcium/carb, tegretol, ear drops, chlorhexidine rinse, cranberry, duloxetine, iron, flonase, ketoconozole shampoo, lisinopril, loratidine and multivitamin. Additionally notified that patient current insulin routine is lantus 5 units at HS and 2 different humalog sliding scales for meals and at bedtime. Notified Dr. Bruce that patient no longer takes scheduled novolog or the previous dose of lantus. Dr. Bruce states understanding and to review current updated home medication list in medication reconciliation screen. primary RN jossue Mendez notified and updated to all of the above also.
--- NOTE | 2016-10-20 19:51 | PCM.PNMED ---
Subjective Date of Service Oct 20, 2016 Subjective Patient is in good spirits and was unaware that she has a temperature of 38.3 C. She is fully awake and alert and able to sing a [place] Song to me and the nurse Monica. She has no new complaints. Exam Vital Signs Vital Sign - Last Date Time Temp Pulse Resp B/P Pulse Ox O2 Delivery O2 Flow Rate FiO2 10/20/16 15:55 37.3 99 20 122/68 93 Nasal Cannula 2.00 Intake and Output 10/19/16 10/19/16 10/20/16 Cumulative From/Thru 15:00 23:00 07:00 10/19/16 19:55 - 10/20/16 06:45 Intake Total 1150 ml 0 ml 1150 ml Output Total 650 ml 650 ml Balance 1150 ml -650 ml 500 ml Intake Oral 0 ml 0 ml IV Total 1150 ml 1150 ml Output Urine Total 650 ml 650 ml Exam General: Patient is comfortable laying supine in bed HEENT: Head: Examination of the head reveals markings from previous gamma knife surgery. Head is normocephalic. Eyes: Pupils are equally round and reactive to light and accommodation. Extraocular muscles are intact. Sclera are white anicteric. Subconjunctival mucosa is pink. Ears and nose are unremarkable. Oropharynx: There is no mucosal lesions, there is no thrush, there is no pharyngitis. Neck: Is supple, there are no nodes, or masses or tenderness. Chest: Is clear to auscultation and percussion. There are no rales, rhonchi, wheezes or rubs. Heart: Rate, rhythm is regular. There is no murmur, rub or gallop. Abdomen: Good bowel sounds are present. Abdomen is soft, nontender, no organomegaly or masses were appreciated. Extremities: Are symmetrical and well perfused. There is no edema, there is no cellulitis, no rash. There is bilateral foot drop Neurologic: There is flexion contracture of the right upper extremity. Patient does exhibit some strength with a partial ability to tuyere fitter the right hand. However, she can no longer extend her right upper extremity at the elbow. Cranial nerves II through XII are intact. Patient is unable to move her lower extremities. She has full movement and range of motion of her left upper extremity. Psychiatric: Patients mood is calm and shows no sign of agitation. Genital: Deferred Rectal: Deferred Lab and Diagnostics Result Diagram: 10/19/16 1722 10/20/16 0435 X-Rays, CTs and MRIs Patient Name: ALBIN ASHBY MR#: [id number] Location: [facility] [place] Ordering Phys: Amalia Durán MD Date of Service: 10/19/161943 PROCEDURE: CT BRAIN WITHOUT CONTRAST ([id number]) INDICATIONS: Sz, tumor TECHNIQUE: Noncontrast 4.5 mm thick angled axial sections acquired from the foramen magnum to the vertex, with coronal reformats. COMPARISON: [facility], MR, MR BRAIN W&WO CON, 08/26/2016, 14:04. Outside Film, CT, CT BRAIN WO CON, 07/17/2016, 12:16. Outside Film, MR, MR BRAIN W&WO CON, 05/20/2016, 16:13. [facility], CT, CT BRAIN WO CON, 05/17/2016, 14:54. [facility], CT, CT BRAIN WO CON, 03/08/2016, 4: 03. [facility], CR, CHEST 1VW (PORTABLE), 09/17/2013, 10:32. [facility], MR, BRAIN W/O CONTRAST, 09/14/2013, 10:25. [facility], CT, BRAIN W/O CONTRAST, 09/14/2013, 0:41. [facility], CT, BRAIN W/O CONTRAST, 12/15/2006, 10:55. [facility] , MR, BRAIN W&W/O CONTRAST, 09/16/2002, 13:03. FINDINGS: Image quality: Excellent. CSF spaces: Basal cisterns are patent. No extra-axial fluid collections. The ventricles are symmetric in size and shape. Brain: Approximately 2.9 x 1. Left parietal mass is surrounded by vasogenic edema. No acute intracranial hemorrhage. .6 cm left parietal mass There is cerebral volume loss for age, with resultant ventricular and sulcal prominence. There are periventricular and deep white matter chronic small vessel ischemic changes. There is intracranial internal carotid artery and right vertebral artery. atherosclerosis. Skull and face: Postsurgical changes compatible with left frontoparietal craniotomy are noted. Sinuses: Visualized sinuses and mastoids are clear. IMPRESSION: 1. Left parietal mass with surrounding vasogenic edema is not significantly changed in size compared to CT scan obtained at 09 such as a 2016. 2. No acute intracranial hemorrhage. Dictated by: Jacqueline Bedoya MD, PhD on 10/19/2016 at 20:20 Approved by: Jacqueline Bedoya MD, PhD on 10/19/2016 at 20:20 PROCEDURE: X-RAY CHEST ONE VIEW, PORTABLE ([id number]) INDICATIONS: 65 year-old female with seizures and hypoventilation. TECHNIQUE: One view of the chest was acquired. COMPARISON: [facility], CR, XR CHEST 1VW (PORTABLE), 05/26/2016, 12: 25. [facility], CR, XR CHEST 1VW (PORTABLE), 05/17/2016, 17:14. [facility], CR, XR CHEST 1VW (PORTABLE), 05/17/2016, 14:35. FINDINGS: Surgical changes and devices: Right chest wall Port-A-Cath is again noted, with tip at the cavoatrial junction. Patient is status post right axillary lymph node dissection and cholecystectomy. Lungs and pleura: No pleural effusions or pneumothorax. Lungs are clear. Lung volumes are decreased. Mediastinum: Mediastinal contours appear normal. Heart size is normal. Bones and chest wall: No suspicious bony lesions. There is persistent asymmetric right hemidiaphragm elevation. Overlying soft tissues appear unremarkable. IMPRESSION: 1. Decreased lung volumes, without acute cardiopulmonary disease. 2. Persistent right hemidiaphragm elevation they reflect chronic right phrenic nerve dysfunction or underlying liver pathology. Dictated by: Darrin Laws M.D. on 10/20/2016 at 7:07 Approved by: Darrin Laws M.D. on 10/20/2016 at 7:07 12-lead ECG Pending Additional Diagnostics [facility] ALBIN ASHBY 1950 Female DateTimeAnalyzed 23:47:00 -_ pH ____7.274 - pCO2 ___63.0__ -mmHg pO2 ___58.3__ -mmHg HCO3- ___28.3__ -mmol/L ABE ____0.2__ -mmol/L tHb ___14.4__ -g/dL O2Hb ___85.0__ -% COHb ____0.4__ -% MetHb ____1.5__ -% sO2 ___86.6__ -% FIO2 ___35.0__ -% Drawn By MM - Date/Time Notified____ 23:52:00 -_ Liter_Flow ____4.0__ -L/min Oxygen Device 1 __CANNULA - Notified Whom DEMETRIUS, AMALIA - Age 59 -years B 753 -mmHg tO2 ___17.1__ -Vol% OrderingPhysicianInitials JL - Emigdio test N/A - [facility] A 1950 Female DateTimeAnalyzed 01:47:00 -_ pH ____7.408 - pCO2 ___32.9__ -mmHg pO2 243 -mmHg HCO3- ___20.3__ -mmol/L ABE ___-3.2__ -mmol/L tHb ___11.0__ -g/dL O2Hb ___95.9__ -% COHb ____1.5__ -% MetHb ____1.4__ -% sO2 ___98.8__ -% FIO2 ___21.0__ -% Drawn By MM - Date/Time Notified____ 01:53:00 -_ Liter_Flow ____2.0__ -L/min Oxygen Device 1 __CANNULA - Notified Whom DR Velázquez - Age 59 -years B 754 -mmHg tO2 ___15.4__ -Vol% Emigdio test N/A - Assessment & Plan This is a 65-year-old female who has a history of multiple sclerosis history of meningioma with removal and recent gamma knife surgery at [facility] on Thursday. She normally has seizures and is currently a resident of [facility]. However today she had 3-4 seizures in the morning and one later in the day that seemed worse than usual and more prolonged. And she was brought in to the emergency room for further evaluation here. She was found to have a subtherapeutic Dilantin level at 0.7. She was given a load of IV Dilantin in the emergency room where studies included a CT of head which did reveal left parietal mass with surrounding vasogenic edema which is not significantly changed in comparison to previous acute intracranial hemorrhage noted. His findings were discussed by ER Sherlyn. with [facility] recommended a dexamethasone taper 4 mg 3 times a day for 4 days then 4 mg twice a day for 4 days then 1 correction 4 mg daily for 4 days and lastly 2 mg daily for 4 days. They also recommended increasing her Dilantin to the extended release 400 mg at bedtime. They did suggest that it would be fine to have her discharged back to [facility]. However the ER felt more comfortable putting her into observation and she still postictal. She was also found to have some respiratory acidosis and initially I recommended BiPAP however with further monitoring per ER M.Lizbeth. her blood gas no longer showed a respiratory acidosis. Hence will be admitted to a regular bed for observation. # Multiple seizures with seizure history, present on admission, acute on chronic Currently postictal place and seizure precautions and observe overnight Patient was given IV Dilantin load will check level in the a.m. Consider increasing her oral dose as mentioned above [facility] was contacted and recommended Decadron titration as noted inHistory of present illness: We will continue as recommended above. # Meningioma, subacute, present on admission Currently managed by [facility] neurosurgery Recently underwent gamma knife surgery on Thursday # Type II diabetes, chronic, present on admission Continue her current medication regimen of insulin subcutaneous While postictal and not taking orals we will give IV D5 half-normal saline Monitor 4 times a day blood sugars Also will need to monitor for elevated blood sugar with initiation of Decadron # Hyperlipidemia, chronic, present on admission Continue home medication regimen # Multiple sclerosis, chronic, present on admission Continue current medication regimen once able to take by mouth # DVT prophylaxis We will use SCDs while here # Fever of 38.3C -Could be due to atelectasis right lower lobe from right hemidiaphragm elevation -Could be due to respiratory infection although chest x-ray is unrevealing except for the right hemidiaphragm elevation -Could be due to urinary tract infection as patient does have bacteria in her urine and trace positive leukocyte esterase. However, there is no evidence of pyuria and patient has a chronic indwelling suprapubic catheter. This could likely merely represent colonization. -Could be due to other source of infection. # CODE STATUS Unable to locate pulse form at this point hence is full code Will need to get information from [facility] Disposition: Due to fever patient will need to remain in the hospital until this is investigated this may have lowered her seizure threshold. Pain Evaluation: Adequate Pain Control GI Prophylaxis: H2 jami VTE Mechanical Devices: Intermittant Pneumatic CD Resuscitation Status: CPR: Attempt Resuscitation Darinel Bruce MD Oct 20, 2016 19:51
[2016-10-20] MEDS: Insulin GLARgine 100 Unit/mL Syringe SUBQ SCH (20:34)
[2016-10-20] MEDS: Phenytoin 100 mg ER Capsule PO SCH (20:44)
[2016-10-20] MEDS: MeTOProlol XL 25 mg ER24 Tablet PO SCH (20:45)
[2016-10-20] MEDS ORDERED: Phenytoin 100 mg ER Capsule PO SCH (21:00)
[2016-10-21] VITALS (9 sets, daily range): BP systolic 129–145; BP diastolic 66–82; PULSE 74–91; RESP 18–20; O2SAT 95–97
[2016-10-21 05:56] LABS: BASOPHILS % (AUTO) 0.1 % (0-3); EOSINOPHILS % (AUTO) 0.1 % (0-5); MONOCYTES % (AUTO) 7.3 % (4-12); Mean Corpuscular Volume 87.4 fL (81-100); NEUTROPHILS % (AUTO) 56.5 % (40-74); Platelet Count 197 bil/L (150-400)
[2016-10-21 06:18] LABS: Magnesium 1.4 mg/dL (1.6-2.6)
--- NOTE | 2016-10-21 07:38 | NUR ---
constipation Bisacodyl suppository given per pt's request for constipation. Pt had small, harm, formed BM.
[2016-10-21] MEDS: Famotidine Inj 20 MG in IV Premix 1 EACH IV SCH ×2 (08:17→21:09)
[2016-10-21] MEDS: Dexamethasone 4 mg/mL Inj IVPUSH SCH ×3 (08:19→21:09)
[2016-10-21] MEDS: Insulin Human REGular 300 Unit/3 mL Inj SUBQ SCH ×4 (08:21→21:15)
[2016-10-21] MEDS: MeTOProlol XL 25 mg ER24 Tablet PO SCH ×2 (08:24→21:09)
[2016-10-21] MEDS: Pantoprazole 40 mg ER24 Tablet PO SCH (08:24)
[2016-10-21] MEDS ORDERED: Magnesium Sulf 4 Gm/100 mL H2O 4 GM in IV Premix 1 EACH IV ONE ×2 (11:00→15:10)
--- NOTE | 2016-10-21 12:03 | NUR ---
possible seizure activity While at pt's bedside, checking blood sugar, pt began having rhythmic movements of her head, almost a bobbing appearance. Pt stated, "Oh no, the shaking started again." Movements began at 1254, ended at 1256 with pt asking, "How do I make this stop?" multiple times. No other body part involved. When ended, pt stated, "Oh good, it stopped. The shaking stopped." No changes in mentation noted following activity. on unit and aware.
[2016-10-21] MEDS ORDERED: Magnesium Sulf 2 Gm/50mL Water 2 GM in IV Premix 1 EACH IV ONE ×2 (13:00→17:10)
[2016-10-21] MEDS ORDERED: Magnesium Hydroxide 10 mL Oral Concentration PO PRN (14:38)
[2016-10-21] MEDS ORDERED: 0.9% Sodium Chloride 250 ML ONE (15:28)
[2016-10-21] MEDS ORDERED: HepLOK Flush 100 unit/mL 5 mL Inj IVFLUSH PRN (15:30)
[2016-10-21] MEDS ORDERED: Sodium Chloride LOK Flush 10 mL Syringe IVFLUSH PRN ×2 (15:30)
--- NOTE | 2016-10-21 16:17 | NUR ---
Wound Care Pressure ulcer protocol received, pt seen at bedside. Pleasant 65 yo female with MS admitted recently with increased seizure activity. Reports some incontinence, has some moisture associated breakdown at her sacrum but no pressure issues are noted today. Recommend frequent repositioning as pt is completely dependent with bed mobility. Also recommend shield 3 in 1 wipes be used over areas of moisture breakdown at sacrum.
[2016-10-21] MEDS: 0.9% Sodium Chloride 250 ML IV SCH (16:35)
[2016-10-21] MEDS: Phenytoin 100 mg ER Capsule PO SCH (21:08)
[2016-10-21] MEDS: Insulin GLARgine 100 Unit/mL Syringe SUBQ SCH (21:12)
--- NOTE | 2016-10-21 21:27 | PCM.PNMED ---
Subjective Date of Service Oct 21, 2016 Subjective Patient does not remember saying a uterine sound to me yesterday. And she appears to be more short of breath today. She is unaware of this. She was able to sing parts of the same hole and song that she saying yesterday forgot many of the lines today. Earlier today she stated to the nurse Monica that she is feeling "it coming on again " after stating this her head began the lisa back and forth. This occurred for a short period of time and then stopped. Patient afterwards remembers the episode, but was not sure what caused it, or brought in on. Patient has no other new complaints. Exam Vital Signs Vital Sign - Last Date Time Temp Pulse Resp B/P Pulse Ox O2 Delivery O2 Flow Rate FiO2 10/21/16 20:46 37.0 83 18 129/66 97 Room Air 10/20/16 15:55 2.00 Intake and Output 10/20/16 10/20/16 10/21/16 Cumulative From/Thru 15:00 23:00 07:00 10/19/16 19:55 - 10/21/16 06:18 Intake Total 766 ml 0 ml 1916 ml Output Total 450 ml 750 ml 1850 ml Balance 316 ml -750 ml 66 ml Intake Oral 286 ml 0 ml 286 ml IV Total 480 ml 1630 ml Output Urine Total 450 ml 750 ml 1850 ml # Bowel Movements 1 1 Exam General: Patient is comfortable laying supine in bed. Overall appears somewhat more lethargic today. HEENT: Head: Examination of the head reveals markings from previous gamma knife surgery. Head is otherwise normocephalic. Eyes: Pupils are equally round and reactive to light and accommodation. Extraocular muscles are intact. Sclera are white anicteric. Subconjunctival mucosa is pink. Ears and nose are unremarkable. Oropharynx: There is no mucosal lesions, there is no thrush, there is no pharyngitis. Neck: Is supple, there are no nodes, or masses or tenderness. Chest: Is clear to auscultation and percussion. However, there is decreased breath sounds at the right base. There are no rales, rhonchi, wheezes or rubs. Heart: Rate, rhythm is regular. There is no murmur, rub or gallop. Abdomen: Good bowel sounds are present. Abdomen is soft, nontender, no organomegaly or masses were appreciated. Extremities: Are symmetrical and well perfused. There is no edema, there is no cellulitis, no rash. There is bilateral foot drop Neurologic: There is flexion contracture of the right upper extremity. Patient does exhibit some strength with a partial ability to manager enterprise the right hand. However, she can no longer extend her right upper extremity at the elbow. Cranial nerves II through XII are intact. Patient is unable to move her lower extremities. She has full movement and range of motion of her left upper extremity. Psychiatric: Patients mood is calm and shows no sign of agitation. I played another [place] song on my cell phone for her and she began singing along but could not keep up with the words of "[place]where [phone] the rainbow" Genital: Deferred Rectal: Deferred Lab and Diagnostics Result Diagram: 10/21/1652910/21/16529 X-Rays, CTs and MRIs Patient Name: ALBIN ASHBY MR#: [id number] Location: [facility] [place] Ordering Phys: Amalia Durán MD Date of Service: 10/19/161943 PROCEDURE: CT BRAIN WITHOUT CONTRAST ([id number]) INDICATIONS: Sz, tumor TECHNIQUE: Noncontrast 4.5 mm thick angled axial sections acquired from the foramen magnum to the vertex, with coronal reformats. COMPARISON: [facility], MR, MR BRAIN W&WO CON, 08/26/2016, 14:04. Outside Film, CT, CT BRAIN WO CON, 07/17/2016, 12:16. Outside Film, MR, MR BRAIN W&WO CON, 05/20/2016, 16:13. [facility], CT, CT BRAIN WO CON, 05/17/2016, 14:54. [facility], CT, CT BRAIN WO CON, 03/08/2016, 4: 03. [facility], CR, CHEST 1VW (PORTABLE), 09/17/2013, 10:32. [facility], MR, BRAIN W/O CONTRAST, 09/14/2013, 10:25. [facility], CT, BRAIN W/O CONTRAST, 09/14/2013, 0:41. [facility], CT, BRAIN W/O CONTRAST, 12/15/2006, 10:55. [facility] , MR, BRAIN W&W/O CONTRAST, 09/16/2002, 13:03. FINDINGS: Image quality: Excellent. CSF spaces: Basal cisterns are patent. No extra-axial fluid collections. The ventricles are symmetric in size and shape. Brain: Approximately 2.9 x 1. Left parietal mass is surrounded by vasogenic edema. No acute intracranial hemorrhage. .6 cm left parietal mass There is cerebral volume loss for age, with resultant ventricular and sulcal prominence. There are periventricular and deep white matter chronic small vessel ischemic changes. There is intracranial internal carotid artery and right vertebral artery. atherosclerosis. Skull and face: Postsurgical changes compatible with left frontoparietal craniotomy are noted. Sinuses: Visualized sinuses and mastoids are clear. IMPRESSION: 1. Left parietal mass with surrounding vasogenic edema is not significantly changed in size compared to CT scan obtained at 09 such as a 2016. 2. No acute intracranial hemorrhage. Dictated by: Jacqueline Bedoya MD, PhD on 10/19/2016 at 20:20 Approved by: Jacqueline Bedoya MD, PhD on 10/19/2016 at 20:20 PROCEDURE: X-RAY CHEST ONE VIEW, PORTABLE ([id number]) INDICATIONS: 65 year-old female with seizures and hypoventilation. TECHNIQUE: One view of the chest was acquired. COMPARISON: [facility], CR, XR CHEST 1VW (PORTABLE), 05/26/2016, 12: 25. [facility], CR, XR CHEST 1VW (PORTABLE), 05/17/2016, 17:14. [facility], CR, XR CHEST 1VW (PORTABLE), 05/17/2016, 14:35. FINDINGS: Surgical changes and devices: Right chest wall Port-A-Cath is again noted, with tip at the cavoatrial junction. Patient is status post right axillary lymph node dissection and cholecystectomy. Lungs and pleura: No pleural effusions or pneumothorax. Lungs are clear. Lung volumes are decreased. Mediastinum: Mediastinal contours appear normal. Heart size is normal. Bones and chest wall: No suspicious bony lesions. There is persistent asymmetric right hemidiaphragm elevation. Overlying soft tissues appear unremarkable. IMPRESSION: 1. Decreased lung volumes, without acute cardiopulmonary disease. 2. Persistent right hemidiaphragm elevation they reflect chronic right phrenic nerve dysfunction or underlying liver pathology. Dictated by: Darrin Laws M.D. on 10/20/2016 at 7:07 Approved by: Darrin Laws M.D. on 10/20/2016 at 7:07 12-lead ECG Pending Additional Diagnostics [facility] ALBIN ASHBY Rashmi 1950 Female DateTimeAnalyzed 23:47:00 -_ pH ____7.274 - pCO2 ___63.0__ -mmHg pO2 ___58.3__ -mmHg HCO3- ___28.3__ -mmol/L ABE ____0.2__ -mmol/L tHb ___14.4__ -g/dL O2Hb ___85.0__ -% COHb ____0.4__ -% MetHb ____1.5__ -% sO2 ___86.6__ -% FIO2 ___35.0__ -% Drawn By MM - Date/Time Notified____ 23:52:00 -_ Liter_Flow ____4.0__ -L/min Oxygen Device 1 __CANNULA - Notified Whom DEMETRIUS, AMALIA - Age 59 -years B 753 -mmHg tO2 ___17.1__ -Vol% OrderingPhysicianInitials JL - Emigdio test N/A - [facility] A 1950 Female DateTimeAnalyzed 01:47:00 -_ pH ____7.408 - pCO2 ___32.9__ -mmHg pO2 243 -mmHg HCO3- ___20.3__ -mmol/L ABE ___-3.2__ -mmol/L tHb ___11.0__ -g/dL O2Hb ___95.9__ -% COHb ____1.5__ -% MetHb ____1.4__ -% sO2 ___98.8__ -% FIO2 ___21.0__ -% Drawn By MM - Date/Time Notified____ 01:53:00 -_ Liter_Flow ____2.0__ -L/min Oxygen Device 1 __CANNULA - Notified Whom DR Velázquez - Age 59 -years B 754 -mmHg tO2 ___15.4__ -Vol% Emigdio test N/A - Assessment & Plan This is a 65-year-old female who has a history of multiple sclerosis history of meningioma with removal and recent gamma knife surgery at [facility] on Thursday10/17/2016. She normally has seizures and is currently a resident of [facility]. However today she had 3-4 seizures in the morning and one later in the day that seemed worse than usual and more prolonged. And she was brought in to the emergency room for further evaluation here. She was found to have a subtherapeutic Dilantin level at 0.7. She was given a load of IV Dilantin in the emergency room where studies included a CT of head which did reveal left parietal mass with surrounding vasogenic edema which is not significantly changed in comparison to previous acute intracranial hemorrhage noted. His findings were discussed by ER Sherlyn. with [facility] recommended a dexamethasone taper 4 mg 3 times a day for 4 days then 4 mg twice a day for 4 days then 1 correction 4 mg daily for 4 days and lastly 2 mg daily for 4 days. They also recommended increasing her Dilantin to the extended release 400 mg at bedtime. They did suggest that it would be fine to have her discharged back to [facility]. However the ER felt more comfortable putting her into observation and she still postictal. She was also found to have some respiratory acidosis and initially I recommended BiPAP however with further monitoring per ER M.D. her blood gas no longer showed a respiratory acidosis. Hence will be admitted to a regular bed for observation. # Multiple seizures with seizure history, present on admission, acute on chronic -Patient very well may have had another episode today. Therefore, will check EEG. -Consider neurology consult. -Patient was given IV Dilantin load will check level in the a.m. -Consider increasing her oral dose as mentioned above -[facility] was contacted and recommended Decadron titration as noted inHistory of present illness above. We will continue as recommended above. # Meningioma, subacute, present on admission -Currently managed by [facility] neurosurgery -Recently underwent gamma knife surgery on Thursday10/17/2016 # Type II diabetes, chronic, present on admission -Continue her current medication regimen of insulin subcutaneous -Monitor 4 times a day blood sugars and cover with sliding scale insulin coverage. -Also will need to monitor for elevated blood sugar with initiation of Decadron -Patient normally takes Lantus 5 mg subcutaneous every evening but they have been decreases to 20 mg every every evening while on Decadron. # Hyperlipidemia, chronic, present on admission -Continue home medication regimen # Multiple sclerosis, chronic, present on admission -Continue current medication regimen once able to take by mouth # DVT prophylaxis -We will use SCDs while here # Fever of 38.3C -Could be due to atelectasis right lower lobe from right hemidiaphragm elevation -Could be due to respiratory infection although chest x-ray is unrevealing except for the right hemidiaphragm elevation -Could be due to urinary tract infection as patient does have bacteria in her urine and trace positive leukocyte esterase. However, there is no evidence of pyuria and patient has a chronic indwelling suprapubic catheter. This could likely merely represent colonization. -Could be due to other source of infection. # CODE STATUS -Unable to locate pulse form at this point hence is full code -Will need to get information from [facility] -As patient is having a difficult time using her incentive spirometer I recommended that she sitting [place] on as much as possible and asked the nurse to start music therapy. This was started this evening. -Dr. Celeste to follow patient a.m. Disposition: Due to fever patient will need to remain in the hospital until this is investigated this may have lowered her seizure threshold. Pain Evaluation: Adequate Pain Control GI Prophylaxis: H2 jami VTE Prophylaxis: Sub-Q Enoxaparin VTE Mechanical Devices: Intermittant Pneumatic CD Resuscitation Status: CPR: Attempt Resuscitation Darinel Bruce MD Oct 21, 2016 21:27
[2016-10-22] VITALS (7 sets, daily range): BP systolic 110–149; BP diastolic 60–81; PULSE 75–87; RESP 18–19; O2SAT 94–96
--- NOTE | 2016-10-22 06:13 | NUR ---
NOC activity Pt has been pleasant and cooperative with care. Altho being forgetful even just after 30 seconds. Pt denies episodes of chest pain, sob, n/v and abd discomfort. Per monitor sharmaine no abn rhythm noted. Pt complains "I can't bring my bm out". Administered Lax suppository PRN. No BM noted. Blood sugar checks done, Insulin and HS meds administered as scheduled. Hourly rounding done, call light within reach. Pt has slept most of the night.
[2016-10-22 06:28] LABS: BASOPHILS % (AUTO) 0.1 % (0-3); EOSINOPHILS % (AUTO) 0.2 % (0-5); MONOCYTES % (AUTO) 7.8 % (4-12); Mean Corpuscular Hemoglobin 28.9 pg (27.0-35.0); Mean Corpuscular Volume 86.1 fL (81-100); NEUTROPHILS % (AUTO) 48.1 % (40-74); Platelet Count 210 bil/L (150-400)
--- NOTE | 2016-10-22 08:44 | DRSVH ---
PROCEDURE: X-RAY CHEST ONE VIEW, PORTABLE ([id number]) INDICATIONS: 65 year-old female with right hemidiaphragm elevation. TECHNIQUE: One view of the chest was acquired. COMPARISON: [facility], CR, XR CHEST 1VW (PORTABLE), 10/20/2016, 0:37. [facility], CR, XR CHEST 1VW (PORTABLE), 05/26/2016, 12:25. [facility], CR, XR CHEST 1VW (PORT ABLE), 05/17/2016, 17:14. FINDINGS: Surgical changes and devices: Right chest wall Port-A-Cath is again noted. Patient is status post rig ht axillary lymph node dissection and cholecystectomy. Lungs and pleura: No pleural effusions or pneumothorax. Lungs are clear. Mediastinum: Mediastinal contours appear normal. Heart size is normal. Bones and chest wall: No suspicious bony lesions. There is persistent asymmetric right hemidiaphragm elevation. IMPRESSION: Persistent right hemidiaphragm elevation may reflect chronic right phrenic nerve dysfunct ion or perhaps underlying liver pathology. Dictated by: Darrin Laws M.D. on 10/22/2016 at 8:42 Approved by: Darrin Laws M.D. on 10/22/2016 at 8:42
[2016-10-22] MEDS: Famotidine Inj 20 MG in IV Premix 1 EACH IV SCH ×2 (10:35→21:42)
[2016-10-22] MEDS: MeTOProlol XL 25 mg ER24 Tablet PO SCH ×2 (10:35→21:42)
[2016-10-22] MEDS: Pantoprazole 40 mg ER24 Tablet PO SCH (10:35)
[2016-10-22] MEDS: Insulin Human REGular 300 Unit/3 mL Inj SUBQ SCH ×4 (10:39→23:09)
[2016-10-22] MEDS: Dexamethasone 4 mg/mL Inj IVPUSH SCH ×3 (10:52→23:09)
--- NOTE | 2016-10-22 15:27 | PCM.PNMED ---
Subjective Date of Service Oct 22, 2016 Subjective no more seizures, dilantin in target range continued decadron pt thinks she had seizures, cannot remember what exactly happened pleasant, AAOx2 Exam Vital Signs Vital Sign - Last Date Time Temp Pulse Resp B/P Pulse Ox O2 Delivery O2 Flow Rate FiO2 10/22/16 10:52 82 10/22/16 10:50 36.7 18 136/80 96 Room Air 10/20/16 15:55 2.00 Intake and Output 10/21/16 10/21/16 10/22/16 Cumulative From/Thru 15:00 23:00 07:00 10/19/16 19:55 - 10/22/16 06:01 Intake Total 664 ml 529 ml 3109 ml Output Total 1800 ml 1400 ml 5050 ml Balance -1136 ml -871 ml -1941 ml Intake Oral 425 ml 236 ml 947 ml IV Total 239 ml 293 ml 2162 ml Output Urine Total 1800 ml 1400 ml 5050 ml # Bowel Movements 0 1 Exam no nystagmus on EOM AAOx2 PERRLA RRR, nl s1 s2 no mrg CTAB no w,c S,ND,NT,BS+ warm, no edema motor Rt sided UE-2/5, BLE-1/[address] IVs and Medications Medications Reviewed: Medications were reviewed in detail Lab and Diagnostics Result Diagram: 10/22/1630 10/22/16 0530 X-Rays, CTs and MRIs Patient Name: ALBIN ASHBY MR#: [id number] Location: [facility] [place] Ordering Phys: Amalia Durán MD Date of Service: 10/19/161943 PROCEDURE: CT BRAIN WITHOUT CONTRAST ([id number]) INDICATIONS: Sz, tumor TECHNIQUE: Noncontrast 4.5 mm thick angled axial sections acquired from the foramen magnum to the vertex, with coronal reformats. COMPARISON: [facility], MR, MR BRAIN W&WO CON, 08/26/2016, 14:04. Outside Film, CT, CT BRAIN WO CON, 07/17/2016, 12:16. Outside Film, MR, MR BRAIN W&WO CON, 05/20/2016, 16:13. [facility], CT, CT BRAIN WO CON, 05/17/2016, 14:54. [facility], CT, CT BRAIN WO CON, 03/08/2016, 4: 03. [facility], CR, CHEST 1VW (PORTABLE), 09/17/2013, 10:32. [facility], MR, BRAIN W/O CONTRAST, 09/14/2013, 10:25. [facility], CT, BRAIN W/O CONTRAST, 09/14/2013, 0:41. [facility], CT, BRAIN W/O CONTRAST, 12/15/2006, 10:55. [facility] , MR, BRAIN W&W/O CONTRAST, 09/16/2002, 13:03. FINDINGS: Image quality: Excellent. CSF spaces: Basal cisterns are patent. No extra-axial fluid collections. The ventricles are symmetric in size and shape. Brain: Approximately 2.9 x 1. Left parietal mass is surrounded by vasogenic edema. No acute intracranial hemorrhage. .6 cm left parietal mass There is cerebral volume loss for age, with resultant ventricular and sulcal prominence. There are periventricular and deep white matter chronic small vessel ischemic changes. There is intracranial internal carotid artery and right vertebral artery. atherosclerosis. Skull and face: Postsurgical changes compatible with left frontoparietal craniotomy are noted. Sinuses: Visualized sinuses and mastoids are clear. IMPRESSION: 1. Left parietal mass with surrounding vasogenic edema is not significantly changed in size compared to CT scan obtained at 09 such as a 2016. 2. No acute intracranial hemorrhage. Dictated by: Jacqueline Bedoya MD, PhD on 10/19/2016 at 20:20 Approved by: Jacqueline Bedoya MD, PhD on 10/19/2016 at 20:20 PROCEDURE: X-RAY CHEST ONE VIEW, PORTABLE ([id number]) INDICATIONS: 65 year-old female with seizures and hypoventilation. TECHNIQUE: One view of the chest was acquired. COMPARISON: [facility], CR, XR CHEST 1VW (PORTABLE), 05/26/2016, 12: 25. [facility], CR, XR CHEST 1VW (PORTABLE), 05/17/2016, 17:14. [facility], CR, XR CHEST 1VW (PORTABLE), 05/17/2016, 14:35. FINDINGS: Surgical changes and devices: Right chest wall Port-A-Cath is again noted, with tip at the cavoatrial junction. Patient is status post right axillary lymph node dissection and cholecystectomy. Lungs and pleura: No pleural effusions or pneumothorax. Lungs are clear. Lung volumes are decreased. Mediastinum: Mediastinal contours appear normal. Heart size is normal. Bones and chest wall: No suspicious bony lesions. There is persistent asymmetric right hemidiaphragm elevation. Overlying soft tissues appear unremarkable. IMPRESSION: 1. Decreased lung volumes, without acute cardiopulmonary disease. 2. Persistent right hemidiaphragm elevation they reflect chronic right phrenic nerve dysfunction or underlying liver pathology. Dictated by: Darrin Laws M.D. on 10/20/2016 at 7:07 Approved by: Darrin Laws M.D. on 10/20/2016 at 7:07 12-lead ECG Pending Additional Diagn[facility] 1950 Female DateTimeAnalyzed 23:47:00 -_ pH ____7.274 - pCO2 ___63.0__ -mmHg pO2 ___58.3__ -mmHg HCO3- ___28.3__ -mmol/L ABE ____0.2__ -mmol/L tHb ___14.4__ -g/dL O2Hb ___85.0__ -% COHb ____0.4__ -% MetHb ____1.5__ -% sO2 ___86.6__ -% FIO2 ___35.0__ -% Drawn By MM - Date/Time Notified____ 23:52:00 -_ Liter_Flow ____4.0__ -L/min Oxygen Device 1 __CANNULA - Notified Whom DEMETRIUS, AMALIA - Age 59 -years B 753 -mmHg tO2 ___17.1__ -Vol% OrderingPhysicianInitials JL - Emigdio test N/A - [facility],ALBIN A 1950 Female DateTimeAnalyzed 01:47:00 -_ pH ____7.408 - pCO2 ___32.9__ -mmHg pO2 243 -mmHg HCO3- ___20.3__ -mmol/L ABE ___-3.2__ -mmol/L tHb ___11.0__ -g/dL O2Hb ___95.9__ -% COHb ____1.5__ -% MetHb ____1.4__ -% sO2 ___98.8__ -% FIO2 ___21.0__ -% Drawn By MM - Date/Time Notified____ 01:53:00 -_ Liter_Flow ____2.0__ -L/min Oxygen Device 1 __CANNULA - Notified Whom DR Velázquez - Age 59 -years B 754 -mmHg tO2 ___15.4__ -Vol% Emigdio test N/A - Assessment & Plan This is a 65-year-old female who has a history of multiple sclerosis history of meningioma with removal and recent gamma knife surgery at [facility] on Thursday10/17/2016. She normally has seizures and is currently a resident of [facility]. However today she had 3-4 seizures in the morning and one later in the day that seemed worse than usual and more prolonged. And she was brought in to the emergency room for further evaluation here. She was found to have a subtherapeutic Dilantin level at 0.7. She was given a load of IV Dilantin in the emergency room where studies included a CT of head which did reveal left parietal mass with surrounding vasogenic edema which is not significantly changed in comparison to previous acute intracranial hemorrhage noted. His findings were discussed by MARLEE Zapata with [facility] recommended a dexamethasone taper 4 mg 3 times a day for 4 days then 4 mg twice a day for 4 days then 1 correction 4 mg daily for 4 days and lastly 2 mg daily for 4 days. They also recommended increasing her Dilantin to the extended release 400 mg at bedtime. They did suggest that it would be fine to have her discharged back to [facility]. However the ER felt more comfortable putting her into observation and she still postictal. She was also found to have some respiratory acidosis and initially I recommended BiPAP however with further monitoring per ER M.D. her blood gas no longer showed a respiratory acidosis. Hence will be admitted to a regular bed for observation. acute, active #seizure d/o, w/ recurrent seizures, known seizure focus w/ structural brain dz , Left parietal meningioma, remained seizure free since adm, no obvious insult to lower seizure threshold, no s/s infection. -s/p IV dilantin loading, continue daily, corrected level 11.6(tx range) -avoid drugs lowering seizure threshold, FU EEG -will consider MRI with MS protocol if pt develop more weakness, more seizures, currently pt denied no further weakness from her baseline #left parietal large atypical Meningioma, chronic, s/p resection in May, s/p gamma knife surgery on Thursday10/17/2016 as it recurred(documented in MRI ), CTH on admission 10/19 showed Left parietal mass with surrounding vasogenic edema is not significantly changed in size compared to CT scan obtained at 09 such as a 2015. -follow up [facility] neurosurgery recs from admissio despite vasogenic edema didn't seem progressed on CT, will continue decardon taper, 4 mg 3 times a day for 4 days until tomorrow then 4 mg twice a day for 4 days then 1 correction 4 mg daily for 4 days and lastly 2 mg daily for 4 days. -follow up neurosurgery upon d/c chronic, stable # Type II diabetes, chronic, present on admission, lantus 20units qhs increased from 5unit while on high dose steroid, continue RISS # Hyperlipidemia, chronic, continue home medication regimen # Multiple sclerosis, chronic, present on admission, continue home meds-baclofen , lyrica, continue indwelling gonzalez #one episode of fever 38.3 on 10/20, remained stable w/o abx. BCX ngtd. UCX- contamination, will observe for now, if febrile, re panculture dvt ppx: SCD dispo: likely tomorrow back to [facility] if remains stable Full code diet: dysphagia mechanical GI Prophylaxis: H2 jami VTE Prophylaxis: Sub-Q Enoxaparin VTE Mechanical Devices: Intermittant Pneumatic CD Resuscitation Status: CPR: Attempt Resuscitation Time spent 35min Nini Celeste MD Oct 22, 2016 15:09
--- NOTE | 2016-10-22 16:32 | NUR ---
NUTRITION ASSESSMENT Assess: 65 yo w/ seizures. Pt having Decadron tapered. ST recommending dysphagia mechanical diet w/ honey thick liquids. Pt resides at [facility]. Pt is WCB at baseline. PMHx: Sepsis, UTI, MS w/ paraplegia, Depression, Chronic neuropathy, BRADY, HTN, DM 2, Chronic constipation, Atonic bowel, Atonic bladder LABS: Reviewed. Cl 95, Cr 0.36, Glu 154, Ca 8.4, Mg 5.0, A1c 8.7 MEDICATIONS: Reviewed. Vitamin D3, Colace, Insulin, Decadron, MVI, Dulcolax DIET: Dysphagia Mechanical w/ HTL, PO 25-75% NUTRITION FOCUSED PHYSICAL ASSESSMENT: GI symptoms/stool: BM x1 /3Braden: 10 Skin integrity: Skin breakdown on sacrum d/t moisture, no PU per WCS Overall Appearance: Overweight woman lying in bed no signs of wasting observed ANTHROPOMETRICS: Current Wt: 81.6 kg BMI: 29 kg/t0Hnfst Wt: 81.6 kg IBW: 59.1 kgRecent wt changes: 8.4 kg wt loss x 6 months (9% = not significant) ESTIMATED NEEDS: Calories: 2015-7618 kcal/d (20-22 kcal/kg/d) Protein: 80-125 g/d (1-1.5 g/kg/d) Fluids: 1551-5213 ml/d (25-30 ml/kg/d) NUTRITION DIAGNOSIS: 1) Altered nutrition related lab values related to type 2 diabetes as evidenced by A1c of 8.7 2) Inadequate oral intake related to seizures as evidenced by PO intake of 25-75% INTERVENTION: 1) Diabetes education provided 2) Will add Gelatein BID to promote calorie/protein intake MONITOR/EVALUATE: PO intake, Labs, Wt, Nutrition status, POC. Will follow per moderate nutrition risk guidelines.
[2016-10-22] MEDS: 0.9% Sodium Chloride 250 ML IV SCH (17:22)
[2016-10-22] MEDS: Phenytoin 100 mg ER Capsule PO SCH (21:42)
[2016-10-22] MEDS: Insulin GLARgine 100 Unit/mL Syringe SUBQ SCH (23:09)
[2016-10-23] VITALS (8 sets, daily range): BP systolic 115–137; BP diastolic 71–79; PULSE 80–95; RESP 18; O2SAT 94–96
[2016-10-23 06:14] LABS: BASOPHILS % (AUTO) 0.1 % (0-3); EOSINOPHILS % (AUTO) 0.1 % (0-5); MONOCYTES % (AUTO) 6.3 % (4-12); Mean Corpuscular Hemoglobin 29.2 pg (27.0-35.0); Mean Corpuscular Volume 85.5 fL (81-100); NEUTROPHILS % (AUTO) 53.6 % (40-74); Platelet Count 234 bil/L (150-400)
[2016-10-23 06:40] LABS: Magnesium 1.5 mg/dL (1.6-2.6)
--- NOTE | 2016-10-23 06:46 | NUR ---
family reports seizure activity. Patients daughter called me in the room and reported that patient was having rhathymic movement of her head and hands. Patient alert and orientedx4. Patients head bobbing back and forth, Patients arms were also jerking. Patient stated "how do I make it stop". lowered patient head down and shaking stopped. patient maintained consciousness throughout. Vitals stable. MD notified. MD up to see patient. no new orders continue to monitor
[2016-10-23] MEDS ORDERED: Magnesium Sulf 2 Gm/50mL Water 2 GM in IV Premix 1 EACH IV ONE (08:20)
[2016-10-23] MEDS: Famotidine Inj 20 MG in IV Premix 1 EACH IV SCH ×2 (09:14→21:23)
[2016-10-23] MEDS: 0.9% Sodium Chloride 250 ML IV SCH (09:16)
[2016-10-23] MEDS: Dexamethasone 4 mg/mL Inj IVPUSH SCH ×3 (09:24→23:44)
[2016-10-23] MEDS: Insulin Human REGular 300 Unit/3 mL Inj SUBQ SCH ×4 (09:24→22:21)
[2016-10-23] MEDS: Pantoprazole 40 mg ER24 Tablet PO SCH (09:27)
[2016-10-23] MEDS: MeTOProlol XL 25 mg ER24 Tablet PO SCH ×2 (09:28→21:24)
[2016-10-23] MEDS ORDERED: Fosphenytoin Inj 500 mgPE in 0.9% Sodium Chloride 50 ML IV ONE (11:10)
--- NOTE | 2016-10-23 11:39 | PROCED ---
[address] [address] EEG PATIENT: ALBIN ASHBY : 1950 MR#: [id number] ADMIT: 10/20/2016 JOB ID: [id number] DATE: 10/22/2016 REQUESTING PHYSICIAN: Dr. Darinel Bruce, Dr. Celeste. CLINICAL HISTORY: The patient is a 65-year-old female with left parietal meningioma surgery one month prior and recent gamma knife surgery one week ago who had three episodes of seizure-like spells. The patient has right hemiplegia and limited left lower extremity weakness. History of MS. The patient has been on Dilantin which was subtherapeutic. DESCRIPTION: While awake and with eyes closed, there are 7 hertz rhythmic and symmetric waveforms seen over the occipital head region which attenuate with eye opening. There are left temporal sharp and slow waves noted in the left temporal head region which do not persist. There are no electrophysiologic seizures noted throughout the recording. There is phase reversal toward T3. The patient enters sleep at which time there is the appropriate sleep architecture noted in both hemispheres. Activation: Photic activation does not reveal any photic driving and no photoparoxysmal discharges. Rhythm strip shows regular rate and rhythm with occasional extra beat. IMPRESSION: Abnormal EEG due to left T3 sharp and slow wave with phase reversal. No ongoing seizure activity noted. Sharp and slow waves noted between the left temporal and left central head region may represent seizure focus. Findings communicated to Dr. Celeste. Also advised Dr. Celeste to increase Dilantin levels to the therapeutic range. Consider neurology consultation if symptoms persist. Agree with MRI of the brain with and without contrast since no follow up studies have been completed since the patient was seen at [facility]. Recommend close coordination with [facility] given the recent surgery.
--- NOTE | 2016-10-23 13:00 | PCM.PNMED ---
Subjective Date of Service Oct 23, 2016 Subjective Overnight, staffs reported seizure-like activity, started with Rt hands which pt cannot normally move, which spontaneously resolved During this episode, pt was alert and full oriented, no postictal confusion reported. This episode was also witnessed by the daughter/medical staff assistant Daughter stated that pt started having similar "small" seizure at [place], progressed to head, eventually made her confused Neurology consulted today Exam Vital Signs Vital Sign - Last Date Time Temp Pulse Resp B/P Pulse Ox O2 Delivery O2 Flow Rate FiO2 10/23/16 10:33 36.9 80 18 137/77 95 Room Air 10/20/16 15:55 2.00 Intake and Output 10/22/16 10/22/16 10/23/16 Cumulative From/Thru 15:00 23:00 07:00 10/19/16 19:55 - 10/23/16 06:26 Intake Total 600 ml 236 ml 3945 ml Output Total 900 ml 1050 ml 7000 ml Balance -300 ml -814 ml -3055 ml Intake Oral 600 ml 236 ml 1783 ml IV Total 2162 ml Output Urine Total 900 ml 1050 ml 7000 ml # Bowel Movements 0 1 2 Exam Rt gaze- 3-4beats of nystagmus, no nystagmus on vertical gaze AAOx2 PERRLA RRR, nl s1 s2 no mrg CTAB no w,c S,ND,NT,BS+ warm, no edema motor Rt sided UE-11/23, BLE-10/[address] IVs and Medications Medications Reviewed: Medications were reviewed in detail Lab and Diagnostics Result Diagram: 10/23/16 0600 10/23/16 0600 X-Rays, CTs and MRIs Patient Name: ALBIN ASHBY MR#: [id number] Location: [facility] [place] Ordering Phys: Amalia Durán MD Date of Service: 10/19/161943 PROCEDURE: CT BRAIN WITHOUT CONTRAST ([id number]) INDICATIONS: Sz, tumor TECHNIQUE: Noncontrast 4.5 mm thick angled axial sections acquired from the foramen magnum to the vertex, with coronal reformats. COMPARISON: [facility], MR, MR BRAIN W&WO CON, 08/26/2016, 14:04. Outside Film, CT, CT BRAIN WO CON, 07/17/2016, 12:16. Outside Film, MR, MR BRAIN W&WO CON, 05/20/2016, 16:13. [facility], CT, CT BRAIN WO CON, 05/17/2016, 14:54. [facility], CT, CT BRAIN WO CON, 03/08/2016, 4: 03. [facility], CR, CHEST 1VW (PORTABLE), 09/17/2013, 10:32. [facility], MR, BRAIN W/O CONTRAST, 09/14/2013, 10:25. [facility], CT, BRAIN W/O CONTRAST, 09/14/2013, 0:41. [facility], CT, BRAIN W/O CONTRAST, 12/15/2006, 10:55. [facility] , MR, BRAIN W&W/O CONTRAST, 09/16/2002, 13:03. FINDINGS: Image quality: Excellent. CSF spaces: Basal cisterns are patent. No extra-axial fluid collections. The ventricles are symmetric in size and shape. Brain: Approximately 2.9 x 1. Left parietal mass is surrounded by vasogenic edema. No acute intracranial hemorrhage. .6 cm left parietal mass There is cerebral volume loss for age, with resultant ventricular and sulcal prominence. There are periventricular and deep white matter chronic small vessel ischemic changes. There is intracranial internal carotid artery and right vertebral artery. atherosclerosis. Skull and face: Postsurgical changes compatible with left frontoparietal craniotomy are noted. Sinuses: Visualized sinuses and mastoids are clear. IMPRESSION: 1. Left parietal mass with surrounding vasogenic edema is not significantly changed in size compared to CT scan obtained at 09 such as a 2016. 2. No acute intracranial hemorrhage. Dictated by: Jacqueline Bedoya MD, PhD on 10/19/2016 at 20:20 Approved by: Jacqueline Bedoya MD, PhD on 10/19/2016 at 20:20 PROCEDURE: X-RAY CHEST ONE VIEW, PORTABLE ([id number]) INDICATIONS: 65 year-old female with seizures and hypoventilation. TECHNIQUE: One view of the chest was acquired. COMPARISON: [facility], CR, XR CHEST 1VW (PORTABLE), 05/26/2016, 12: 25. [facility], CR, XR CHEST 1VW (PORTABLE), 05/17/2016, 17:14. [facility], CR, XR CHEST 1VW (PORTABLE), 05/17/2016, 14:35. FINDINGS: Surgical changes and devices: Right chest wall Port-A-Cath is again noted, with tip at the cavoatrial junction. Patient is status post right axillary lymph node dissection and cholecystectomy. Lungs and pleura: No pleural effusions or pneumothorax. Lungs are clear. Lung volumes are decreased. Mediastinum: Mediastinal contours appear normal. Heart size is normal. Bones and chest wall: No suspicious bony lesions. There is persistent asymmetric right hemidiaphragm elevation. Overlying soft tissues appear unremarkable. IMPRESSION: 1. Decreased lung volumes, without acute cardiopulmonary disease. 2. Persistent right hemidiaphragm elevation they reflect chronic right phrenic nerve dysfunction or underlying liver pathology. Dictated by: Darrin Laws M.D. on 10/20/2016 at 7:07 Approved by: Darrin Laws M.D. on 10/20/2016 at 7:07 12-lead ECG Pending Additional Diagnostics [facility] ALBIN ASHBY A 1950 Female DateTimeAnalyzed 23:47:00 -_ pH ____7.274 - pCO2 ___63.0__ -mmHg pO2 ___58.3__ -mmHg HCO3- ___28.3__ -mmol/L ABE ____0.2__ -mmol/L tHb ___14.4__ -g/dL O2Hb ___85.0__ -% COHb ____0.4__ -% MetHb ____1.5__ -% sO2 ___86.6__ -% FIO2 ___35.0__ -% Drawn By MM - Date/Time Notified____ 23:52:00 -_ Liter_Flow ____4.0__ -L/min Oxygen Device 1 __CANNULA - Notified Whom DEMETRIUS, AMALIA - Age 59 -years B 753 -mmHg tO2 ___17.1__ -Vol% OrderingPhysicianInitials JL - Emigdio test N/A - [facility] A 1950 Female DateTimeAnalyzed 01:47:00 -_ pH ____7.408 - pCO2 ___32.9__ -mmHg pO2 243 -mmHg HCO3- ___20.3__ -mmol/L ABE ___-3.2__ -mmol/L tHb ___11.0__ -g/dL O2Hb ___95.9__ -% COHb ____1.5__ -% MetHb ____1.4__ -% sO2 ___98.8__ -% FIO2 ___21.0__ -% Drawn By MM - Date/Time Notified____ 01:53:00 -_ Liter_Flow ____2.0__ -L/min Oxygen Device 1 __CANNULA - Notified Whom DR Velázquez - Age 59 -years B 754 -mmHg tO2 ___15.4__ -Vol% Emigdio test N/A - Assessment & Plan This is a 65-year-old female who has a history of multiple sclerosis history of meningioma with removal and recent gamma knife surgery at [facility] on Thursday10/17/2016. She normally has seizures and is currently a resident of [facility]. However today she had 3-4 seizures in the morning and one later in the day that seemed worse than usual and more prolonged. And she was brought in to the emergency room for further evaluation here. She was found to have a subtherapeutic Dilantin level at 0.7. She was given a load of IV Dilantin in the emergency room where studies included a CT of head which did reveal left parietal mass with surrounding vasogenic edema which is not significantly changed in comparison to previous acute intracranial hemorrhage noted. His findings were discussed by MARLEE Zapata with [facility] recommended a dexamethasone taper 4 mg 3 times a day for 4 days then 4 mg twice a day for 4 days then 1 correction 4 mg daily for 4 days and lastly 2 mg daily for 4 days. They also recommended increasing her Dilantin to the extended release 400 mg at bedtime. They did suggest that it would be fine to have her discharged back to [facility]. However the ER felt more comfortable putting her into observation and she still postictal. She was also found to have some respiratory acidosis and initially I recommended BiPAP however with further monitoring per ER M.D. her blood gas no longer showed a respiratory acidosis. Hence will be admitted to a regular bed for observation. acute, active #seizure d/o, w/ recurrent seizures, known seizure focus w/ structural brain dz , Left parietal meningioma, remained seizure free since adm, no obvious insult to lower seizure threshold, no s/s infection. EEG showed epileptiform focus which is expected given mass. New simple partial seizure-like episode on 10/23 is concerning for breakthrough seizure vs pseudoseizure. -appreciate input, recommended 500 dilantin loading, -s/p IV dilantin loading, continue [id number] daily, corrected level 11.6 yesterday, -avoid drugs lowering seizure threshold, -MRI w wo Con today, will push images to to compare #left parietal large atypical Meningioma, chronic, s/p resection in May, s/p gamma knife surgery on Thursday10/17/2016 as it recurred(documented in MRI ), CTH on admission 10/19 showed Left parietal mass with surrounding vasogenic edema is not significantly changed in size compared to CT scan obtained at 09 such as a 2015. -follow up [facility] neurosurgery recs from admissio despite vasogenic edema didn't seem progressed on CT, will continue decardon taper, 4 mg 3 times a day for 4 days until today then 4 mg twice a day for 4 days then 1 correction 4 mg daily for 4 days and lastly 2 mg daily for 4 days. -follow up neurosurgery upon d/c chronic, stable # Type II diabetes, chronic, present on admission, lantus 20units qhs increased from 5unit while on high dose steroid, continue RISS # Hyperlipidemia, chronic, continue home medication regimen # Multiple sclerosis, chronic, present on admission, continue home meds-baclofen , lyrica, continue indwelling gonzalez(will change today as it looked unkempt) #one episode of fever 38.3 on 10/20, remained stable w/o abx. BCX ngtd. UCX- contamination, will observe for now, if febrile, re panculture dvt ppx: SCD dispo: pending given new seizure-like episodes Full code diet: dysphagia mechanical GI Prophylaxis: H2 jami VTE Prophylaxis: Sub-Q Enoxaparin VTE Mechanical Devices: Intermittant Pneumatic CD Resuscitation Status: CPR: Attempt Resuscitation Time spent 35min Nini Celeste MD Oct 23, 2016 13:00
--- NOTE | 2016-10-23 18:49 | NUR ---
Suprapubic catheter: Patients current suprapubic cath that she came to the hospital with was very oviferous, the tubing was coated with cloudy yellow matter. The catheter was discontinued and a new 24 indonesian suprapubic cath was placed. The new caths urine is pale and clear.
[2016-10-23] MEDS: Phenytoin 100 mg ER Capsule PO SCH (21:23)
[2016-10-23] MEDS: Insulin GLARgine 100 Unit/mL Syringe SUBQ SCH (22:20)
[2016-10-24 00:11] VITALS: BP 98/63; PULSE 80; RESP 18; O2SAT 93
[2016-10-24 04:54] VITALS: PULSE 77
[2016-10-24 06:08] VITALS: BP 119/69; PULSE 85; RESP 18; O2SAT 93
[2016-10-24 06:44] LABS: BASOPHILS % (AUTO) 0.1 % (0-3); EOSINOPHILS % (AUTO) 0.2 % (0-5); Mean Corpuscular Hemoglobin 29.1 pg (27.0-35.0); Mean Corpuscular Volume 85.3 fL (81-100); NEUTROPHILS % (AUTO) 60.2 % (40-74); Platelet Count 233 bil/L (150-400)
[2016-10-24 07:18] LABS: Magnesium 1.8 mg/dL (1.6-2.6); Phosphorus 4.1 mg/dL (2.5-4.9)
[2016-10-24] MEDS ORDERED: Magnesium Sulf 2 Gm/50mL Water 2 GM in IV Premix 1 EACH IV ONE (07:30)
[2016-10-24 08:00] VITALS: PULSE 77
[2016-10-24] MEDS: Famotidine Inj 20 MG in IV Premix 1 EACH IV SCH (08:00)
[2016-10-24] MEDS: Pantoprazole 40 mg ER24 Tablet PO SCH (08:06)
[2016-10-24] MEDS: MeTOProlol XL 25 mg ER24 Tablet PO SCH (08:06)
[2016-10-24] MEDS: Insulin Human REGular 300 Unit/3 mL Inj SUBQ SCH ×2 (08:07→11:30)
--- NOTE | 2016-10-24 08:32 | DRSVH ---
PROCEDURE: MRI BRAIN WITH AND WITHOUT CONTRAST ([id number]) INDICATIONS: Memory loss, multiple sclerosis, left parietal meningioma TECHNIQUE: Noncontrast axial T1 spin echo, axial T2 fast spin echo, sagittal and axial FLAIR, coronal T2 fast sp in echo, axial gradient echo, axial diffusion and ADC through the brain. After the administration of contrast, axial and coronal 3D VIBE or T1 spin echo with fat saturation through the brain. COMPARISON: [facility], MR, BRAIN W/O CONTRAST, 09/14/2013, 10:25. Outside Film, MR, MR BRAIN W&WO CON, 05/20/2016, 16:13. [facility], MR, MR BRAIN W&WO CON, 08/26/2016, 14:04. FINDINGS: Image quality: Excellent. CSF Spaces: Basal cisterns are patent. No extra-axial fluid collections. Ventricles are normal in size and shape. Brain: Multiple foci of increased T2/flair signal are noted in the periventricular, subcortical and corpus callosal white matter tracts compatible clinically reported multiple sclerosis. Multiple scler osis plaques are stable in size contour and number compared to prior MRI obtained 08/26/2016. Left pa rietal, parafalcine, extra-axial mass again noted. The mass is increased in size measuring 2.5 x 2.2 x 2.6 cm (1.9 x 2.1 x 1.5 cm previously). Imaging characteristics of a left parietal extra-axial mass have changed in the interval since prior MRI obtained 08/26/16 with increased central T2 signal and enhancement limited to the periphery of the lesion. Change in imaging characteristics may reflect beverley tral necrosis related to radiation therapy; please correlate with clinical data. The left parietal ex tra-axial masses having mild mass effect on adjacent brain parenchyma. There is vasogenic edema in th e left frontal lobe adjacent to the lesion which has developed in the interval since the prior examin ation. No midline shift. Normal flow voids noted in the superior sagittal sinus. The brainstem appear s normal. Diffusion-weighted images demonstrate no acute ischemic insults. No chronic ischemic insu lts. Normal intravascular flow voids are present. There is normal contrast-enhancement of the dural sinuses. Skull and face: Postsurgical changes compatible with prior craniotomy are stable compared to prior ex amination. Orbits appear normal. Sinuses: Sinuses and mastoids appear clear. IMPRESSION: 1. Foci of increased T2 signal in the periventricular, subcortical and corpus callosal white matter t racts compatible with multiple sclerosis are stable compared to prior examination 08/26/2016. 2. Left parietal extra-axial mass has increased in size and has changed imaging characteristics in in terval since prior MRI. Additionally, the left parietal lesion is causing increased mass effect on th e adjacent brain parenchyma and there is new vasogenic edema involving the left parietal lobe. Findin gs may be related to post radiation changes, however central necrosis involving neoplastic process ot her than meningioma cannot be excluded by imaging alone. Please correlate with clinical and surgical data. Dictated by: Jacqueline Bedoya MD, PhD on 10/24/2016 at 8:30 Approved by: Jacqueline Bedoya MD, PhD on 10/24/2016 at 8:30
[2016-10-24 09:15] VITALS: BP 124/75; PULSE 99; RESP 19; O2SAT 97
[2016-10-24] MEDS ORDERED: Dexamethasone PO (11:19)
[2016-10-24] MEDS ORDERED: PHEN200C3 PO (14:18)
--- NOTE | 2016-10-24 14:21 | PCM.DIMED ---
Discharge Instructions Date of Service Oct 24, 2016 Dates of Hospitalization Oct 20, 2016 at 03:29 Discharge Diagnosis Discharge Diagnosis Seizure episode secondary to known meningioma Medication Instructions Dilantin ER increased from 300 to 400mg, now level is in therapeutic range Please follow Decadron tapering schedule, directed in instruction on RX Diet No restrictions Activity No restrictions Call your provider Fever or Chills Patient Instructions You were hospitalized with probable seizure episode, treated with increased dosage of dilantin and steroid. Instruction for SNF Please follow medicine strictly Please follow up with Neurooncology at for further treatment, call to set up appointment [phone] Follow-up plan Please follow up with your neurooncologist as scheduled. Follow-up with PCP in: 2 weeks Nini Celeste MD Oct 24, 2016 11:21
--- NOTE | 2016-10-24 15:17 | NUR ---
Faxed orders to [facility] and let [facility] know that patient will be returning this afternoon. Arranged S transport for 1630 via [place] ambulance. [facility] [place]. PCS form completed and signed by MARKETING ACCOUNT EXECUTIVE
--- NOTE | 2016-10-24 15:38 | NUR ---
Social Work: Discharge Data: Pt is on day 4 of hospitalization. EMR reviewed, d/c orders are in. Pt will transport to [facility] at 4:30pm today. No further d/c planning needs at this time. MECHANICAL PRESS OPERATOR will continue to follow if needs arise. Assessment: Pt from SNF. Plan: Pt will d/c back to [facility] at 4:30pm today. No further d/c planning needs at this time. MECHANICAL PRESS OPERATOR will continue to follow if needs arise. DANIELE Berrios
--- NOTE | 2016-10-24 16:44 | NUR ---
Discharge Nursing Note: Patient was discharged to [facility] at 1650. Patients Portacath was deaccessed by IV therapy. Patient was transported by [facility] transport team in cabulance. Patients informational packet was sent with her at discharge. Report was called to Erin the nurse taking over patient care at the snf.
--- NOTE | 2016-10-25 20:32 | PCM.DC.MED ---
Discharge Summary Date of Service Oct 23, 2016 Dates of Hospitalization Date of Hospital Admission Oct 20, 2016 at 03:29 Date of Discharge: Oct 23, 2016 Providers: Admitting Physician: Sadaf Henderson MD Primary Care Physician: Noa Novoa MD Attending Physician: Sadaf Henderson MD Diagnosis at Time of Discharge Diagnosis at Time of Discharge Seizure d/o, w/ recurrent seizures, known seizure focus w/ structural brain dz, Left parietal meningioma Left parietal large atypical Meningioma s/p resection in May, s/p gamma knife surgery on 10/17/2016 One febrile episode, unclear etiology chronic # Type II diabetes # Hyperlipidemia # Multiple sclerosis Consultations Neurosurgery, at [facility] Neuroradiology, at [facility] Neurology at [facility] Procedures XRay, CTs & MRIs PROCEDURE: MRI BRAIN WITH AND WITHOUT CONTRAST ([id number]) INDICATIONS: Memory loss, multiple sclerosis, left parietal meningioma TECHNIQUE: Noncontrast axial T1 spin echo, axial T2 fast spin echo, sagittal and axial FLAIR, coronal T2 fast spin echo, axial gradient echo, axial diffusion and ADC through the brain. After the administration of contrast, axial and coronal 3D VIBE or T1 spin echo with fat saturation through the brain. COMPARISON: [facility], MR, BRAIN W/O CONTRAST, 09/14/2013, 10:25. Outside Film, MR, MR BRAIN W&WO CON, 05/20/2016, 16:13. [facility] , MR, MR BRAIN W&WO CON, 08/26/2016, 14:04. FINDINGS: Image quality: Excellent. CSF Spaces: Basal cisterns are patent. No extra-axial fluid collections. Ventricles are normal in size and shape. Brain: Multiple foci of increased T2/flair signal are noted in the periventricular, subcortical and corpus callosal white matter tracts compatible clinically reported multiple sclerosis. Multiple sclerosis plaques are stable in size contour and number compared to prior MRI obtained 08/26/2016. Left parietal, parafalcine, extra-axial mass again noted. The mass is increased in size measuring 2.5 x 2.2 x 2.6 cm (1.9 x 2.1 x 1.5 cm previously). Imaging characteristics of a left parietal extra-axial mass have changed in the interval since prior MRI obtained 11/08/16 with increased central T2 signal and enhancement limited to the periphery of the lesion. Change in imaging characteristics may reflect central necrosis related to radiation therapy; please correlate with clinical data. The left parietal extra-axial masses having mild mass effect on adjacent brain parenchyma. There is vasogenic edema in the left frontal lobe adjacent to the lesion which has developed in the interval since the prior examination. No midline shift. Normal flow voids noted in the superior sagittal sinus. The brainstem appears normal. Diffusion- weighted images demonstrate no acute ischemic insults. No chronic ischemic insults. Normal intravascular flow voids are present. There is normal contrast- enhancement of the dural sinuses. Skull and face: Postsurgical changes compatible with prior craniotomy are stable compared to prior examination. Orbits appear normal. Sinuses: Sinuses and mastoids appear clear. IMPRESSION: 1. Foci of increased T2 signal in the periventricular, subcortical and corpus callosal white matter tracts compatible with multiple sclerosis are stable compared to prior examination 08/26/2016. 2. Left parietal extra-axial mass has increased in size and has changed imaging characteristics in interval since prior MRI. Additionally, the left parietal lesion is causing increased mass effect on the adjacent brain parenchyma and there is new vasogenic edema involving the left parietal lobe. Findings may be related to post radiation changes, however central necrosis involving neoplastic process other than meningioma cannot be excluded by imaging alone. Please correlate with clinical and surgical data. Dictated by: Jacqueline Bedoya MD, PhD on 10/24/2016 at 8:30 Approved by: Jacqueline Bedoya MD, PhD on 10/24/2016 at 8:30 PROCEDURE: CT BRAIN WITHOUT CONTRAST ([id number]) INDICATIONS: Sz, tumor TECHNIQUE: Noncontrast 4.5 mm thick angled axial sections acquired from the foramen magnum to the vertex, with coronal reformats. COMPARISON: [facility], MR, MR BRAIN W&WO CON, 08/26/2016, 14:04. Outside Film, CT, CT BRAIN WO CON, 07/17/2016, 12:16. Outside Film, MR, MR BRAIN W&WO CON, 05/20/2016, 16:13. [facility], CT, CT BRAIN WO CON, 05/17/2016, 14:54. [facility], CT, CT BRAIN WO CON, 03/08/2016, 4: 03. [facility], CR, CHEST 1VW (PORTABLE), 09/17/2013, 10:32. [facility], MR, BRAIN W/O CONTRAST, 09/14/2013, 10:25. [facility], CT, BRAIN W/O CONTRAST, 09/14/2013, 0:41. [facility], CT, BRAIN W/O CONTRAST, 12/15/2006, 10:55. [facility] , MR, BRAIN W&W/O CONTRAST, 09/16/2002, 13:03. FINDINGS: Image quality: Excellent. CSF spaces: Basal cisterns are patent. No extra-axial fluid collections. The ventricles are symmetric in size and shape. Brain: Approximately 2.9 x 1. Left parietal mass is surrounded by vasogenic edema. No acute intracranial hemorrhage. .6 cm left parietal mass There is cerebral volume loss for age, with resultant ventricular and sulcal prominence. There are periventricular and deep white matter chronic small vessel ischemic changes. There is intracranial internal carotid artery and right vertebral artery. atherosclerosis. Skull and face: Postsurgical changes compatible with left frontoparietal craniotomy are noted. Sinuses: Visualized sinuses and mastoids are clear. IMPRESSION: 1. Left parietal mass with surrounding vasogenic edema is not significantly changed in size compared to CT scan obtained at 09 such as a 2016. 2. No acute intracranial hemorrhage. Dictated by: Jacqueline Bedoya MD, PhD on 10/19/2016 at 20:20 Approved by: Jacqueline Bedoya MD, PhD on 10/19/2016 at 20:20 PROCEDURE: X-RAY CHEST ONE VIEW, PORTABLE ([id number]) INDICATIONS: 65 year-old female with seizures and hypoventilation. TECHNIQUE: One view of the chest was acquired. COMPARISON: [facility], CR, XR CHEST 1VW (PORTABLE), 05/26/2016, 12: 25. [facility], CR, XR CHEST 1VW (PORTABLE), 05/17/2016, 17:14. [facility], CR, XR CHEST 1VW (PORTABLE), 05/17/2016, 14:35. FINDINGS: Surgical changes and devices: Right chest wall Port-A-Cath is again noted, with tip at the cavoatrial junction. Patient is status post right axillary lymph node dissection and cholecystectomy. Lungs and pleura: No pleural effusions or pneumothorax. Lungs are clear. Lung volumes are decreased. Mediastinum: Mediastinal contours appear normal. Heart size is normal. Bones and chest wall: No suspicious bony lesions. There is persistent asymmetric right hemidiaphragm elevation. Overlying soft tissues appear unremarkable. IMPRESSION: 1. Decreased lung volumes, without acute cardiopulmonary disease. 2. Persistent right hemidiaphragm elevation they reflect chronic right phrenic nerve dysfunction or underlying liver pathology. Dictated by: Darrin Laws M.D. on 10/20/2016 at 7:07 Approved by: Darrin Laws M.D. on 10/20/2016 at 7:07 Other Diagnostics EEG PATIENT: ALBIN ASHBY : 1950 MR#: [id number] ADMIT: 10/20/2016 JOB ID: [id number] DATE: 10/22/2016 REQUESTING PHYSICIAN: Dr. Darinel Bruce, Dr. Rich. CLINICAL HISTORY: The patient is a 65-year-old female with left parietal meningioma surgery one month prior and recent gamma knife surgery one week ago who had three episodes of seizure-like spells. The patient has right hemiplegia and limited left lower extremity weakness. History of MS. The patient has been on Dilantin which was subtherapeutic. DESCRIPTION: While awake and with eyes closed, there are 7 hertz rhythmic and symmetric waveforms seen over the occipital head region which attenuate with eye opening. There are left temporal sharp and slow waves noted in the left temporal head region which do not persist. There are no electrophysiologic seizures noted throughout the recording. There is phase reversal toward T3. The patient enters sleep at which time there is the appropriate sleep architecture noted in both hemispheres. Activation: Photic activation does not reveal any photic driving and no photoparoxysmal discharges. Rhythm strip shows regular rate and rhythm with occasional extra beat. IMPRESSION: Abnormal EEG due to left T3 sharp and slow wave with phase reversal. No ongoing seizure activity noted. Sharp and slow waves noted between the left temporal and left central head region may represent seizure focus. Findings communicated to Dr. Rich. Also advised Dr. Rich to increase Dilantin levels to the therapeutic range. Consider neurology consultation if symptoms persist. Agree with MRI of the brain with and without contrast since no follow up studies have been completed since the patient was seen at [facility]. Recommend close coordination with [facility] given the recent surgery. Zoe Montes MD 10/23/16 1047 [facility] LIZETTEALBIN DENNISON Rashmi 1950 Female DateTimeAnalyzed 23:47:00 -_ pH ____7.274 - pCO2 ___63.0__ -mmHg pO2 ___58.3__ -mmHg HCO3- ___28.3__ -mmol/L ABE ____0.2__ -mmol/L tHb ___14.4__ -g/dL O2Hb ___85.0__ -% COHb ____0.4__ -% MetHb ____1.5__ -% sO2 ___86.6__ -% FIO2 ___35.0__ -% Drawn By MM - Date/Time Notified____ 23:52:00 -_ Liter_Flow ____4.0__ -L/min Oxygen Device 1 __CANNULA - Notified Whom DEMETRIUS, HYUN - Age 59 -years B 753 -mmHg tO2 ___17.1__ -Vol% OrderingPhysicianInitials JL - Emigdio test N/A - [facility] A 1950 Female DateTimeAnalyzed 01:47:00 -_ pH ____7.408 - pCO2 ___32.9__ -mmHg pO2 243 -mmHg HCO3- ___20.3__ -mmol/L ABE ___-3.2__ -mmol/L tHb ___11.0__ -g/dL O2Hb ___95.9__ -% COHb ____1.5__ -% MetHb ____1.4__ -% sO2 ___98.8__ -% FIO2 ___21.0__ -% Drawn By MM - Date/Time Notified____ 01:53:00 -_ Liter_Flow ____2.0__ -L/min Oxygen Device 1 __CANNULA - Notified Whom DR Velázquez - Age 59 -years B 754 -mmHg tO2 ___15.4__ -Vol% Emigdio test N/A - Brief History H&P obtained by This is a 65-year-old female who has a history of multiple sclerosis history of meningioma with removal and recent gamma knife surgery at [facility] on Thursday. She normally has seizures and is currently a resident of [facility]. However today she had 3-4 seizures in the morning and one later in the day that seemed worse than usual and more prolonged. And she was brought in to the emergency room for further evaluation here. She was found to have a subtherapeutic Dilantin level at 0.7. She was given a load of IV Dilantin in the emergency room where studies included a CT of head which did reveal left parietal mass with surrounding vasogenic edema which is not significantly changed in comparison to previous acute intracranial hemorrhage noted. His findings were discussed by ER MAshley. with [facility] recommended a dexamethasone taper 4 mg 3 times a day for 4 days then 4 mg twice a day for 4 days then 1 correction 4 mg daily for 4 days and lastly 2 mg daily for 4 days. They also recommended increasing her Dilantin to the extended release 400 mg at bedtime. They did suggest that it would be fine to have her discharged back to [facility]. However the ER felt more comfortable putting her into observation and she still postictal. She was also found to have some respiratory acidosis and initially I recommended BiPAP however with further monitoring per ER M.D. her blood gas no longer showed a respiratory acidosis. Hence will be admitted to a regular bed for observation. Hospital Course This is a 65-year-old female who has a history of multiple sclerosis history of meningioma with removal and recent gamma knife surgery at [facility] on Thursday10/17/2016. She normally has seizures and is currently a resident of [facility]. However today she had 3-4 seizures in the morning and one later in the day that seemed worse than usual and more prolonged. And she was brought in to the emergency room for further evaluation here. She was found to have a subtherapeutic Dilantin level at 0.7. She was given a load of IV Dilantin in the emergency room where studies included a CT of head which did reveal left parietal mass with surrounding vasogenic edema which is not significantly changed in comparison to previous acute intracranial hemorrhage noted. His findings were discussed by ER MAshley. with [facility] recommended a dexamethasone taper 4 mg 3 times a day for 4 days then 4 mg twice a day for 4 days then 1 correction 4 mg daily for 4 days and lastly 2 mg daily for 4 days. They also recommended increasing her Dilantin to the extended release 400 mg at bedtime. They did suggest that it would be fine to have her discharged back to [facility]. However the ER felt more comfortable putting her into observation and she still postictal. She was also found to have some respiratory acidosis and initially I recommended BiPAP however with further monitoring per ER M.D. her blood gas no longer showed a respiratory acidosis. Hence will be admitted to a regular bed for observation. #seizure d/o, w/ recurrent seizures, known seizure focus w/ structural brain dz , Left parietal meningioma, initially pt remained seizure free since adm, no obvious insult to lower seizure threshold, no s/s infection. EEG showed epileptiform focus which was expected given mass. then patient developed new simple partial seizure-like episode on 10/23 which was concerning for breakthrough seizure. [id number] iv loaded after discussion with , neurology. MRI w wo contrast showed increased mass compared to the one in 08/26, however, MRI was pushed to , reviewed by neuroradiology , Neurosurgeon, thought that this was expected changes from Gamma knife procedure, there was no urgent indication for surgery or transfer. Dilantin level was checked serially, eventually was in tx range corrected level> 13, pt remained neurologically intact. #left parietal large atypical Meningioma s/p resection in May, s/p gamma knife surgery on 10/17/2016 as it recurred(documented in MRI 08/26/16), CTH on admission 10/19 showed Left parietal mass with surrounding vasogenic edema is not significantly changed in size compared to CT scan obtained at 09 such as a 2016. MRI showed "Left parietal extra-axial mass has increased in size and has changed imaging characteristics in interval since prior MRI(08/26/16). Additionally, the left parietal lesion is causing increased mass effect on the adjacent brain parenchyma and there is new vasogenic edema involving the left parietal lobe. Findings may be related to post radiation changes, however central necrosis involving neoplastic process other than meningioma cannot be excluded by imaging alone" plan was discussed in details with multiple providers as described above. Pt was continued Decadron taper, 4 mg 3 times a day for 4 days until today then 4 mg twice a day for 4 days then 1 correction 4 mg daily for 4 days and lastly 2 mg daily for 4 days. pt will be followed up [facility] neuro[facility]cology in 1-3month as scheduled. Daughter was informed. chronic # Type II diabetes, stable # Hyperlipidemia, chronic, continued home statin, stable # Multiple sclerosis, chronic, present on admission, MS lesions were stable on repeat MRI, continued home meds-baclofen, lyrica, indwelling gonzalez was changed # one episode of fever 38.3 on 10/20, remained stable w/o abx. BCX ngtd. UCX- contamination. no abx was given. Exam Vital Signs (Last) Date Time Temp Pulse Resp B/P Pulse Ox O2 Delivery O2 Flow Rate FiO2 10/24/16 09:15 36.7 99 19 124/75 97 Room Air 10/20/16 15:55 2.00 Exam Rt gaze- 1-2beats of nystagmus, no nystagmus on vertical gaze AAOx2 PERRLA RRR, nl s1 s2 no mrg CTAB no w,c S,ND,NT,BS+ warm, no edema motor Rt sided UE-2/5, BLE-1/[address] Test 10/20/16 04:35 10/20/16 15:16 10/20/16 16:10 10/22/16 05:30 Hemoglobin A1c 8.7% (4.8-5.6) Urine Color Yellow (YELLOW) Urine Appearance Cloudy (CLEAR,HAZY) Urine pH 7.0 (5.0-8.0) Urine Specific [place] 1.015 (1.003-1.035) Urine Protein Tracemg/dL (NEG,TRACE) Urine Glucose (UA) 250mg/dL (NEGATIVE) Urine Ketones Negativemg/dL (NEGATIVE) Urine Occult Blood Negative (NEGATIVE) Urine Nitrite Negative (NEGATIVE) Urine Bilirubin Negative (NEGATIVE) Urine Urobilinogen Normalmg/dL (NORMAL) Urine Leukocyte Esterase Trace (NEGATIVE) Urine RBC 0-2/hpf (0-2) Urine WBC 0-5/hpf (0-5) Urine Epithelial Cells None/hpf (NONE-MOD) Urine Crystals Uric acid crystals (NONE Urine Bacteria Many/hpf (NONE-FEW) Urine Hyaline Casts None/lpf (NONE) Urine Granular Casts None seen (NONE SEEN) Urine Waxy Casts None seen (NONE SEEN) Urine Red Blood Cell Casts None seen (NONE SEEN) Urine White Blood Cell Casts None seen (NONE SEEN) Urine Mucus Present (None Seen) Urine Trichomonas None seen (NONE SEEN) Urine Yeast None (NONE SEEN) Urinalysis Comment Amorphous sediment Urine Culture Reflexed Indicated Troponin T < 0.010ug/L (0.0-0.011) Procalcitonin < 0.05ng/mL (See Comment) Test 10/23/16 06:00 10/23/16 14:42 10/24/16 05:35 10/24/16 05:40 Prealbumin 25mg/dL (20-40) Hold Urine Received (Received) Phenytoin (Dilantin) Level 13.5uG/mL (10.0-20.0) White Blood Count 9.3th/mm3 (3.8-10.1) Red Blood Count 4.70mil/mm3 (3.90-5.20) Hemoglobin 13.7g/dL (12.0-15.6) Hematocrit 40.1% (35.0-46.0) Mean Corpuscular Volume 85.3fL (81-100) Mean Corpuscular Hemoglobin 29.1pg (27.0-35.0) Mean Corpuscular Hemoglobin Concent 34.2% (32.0-37.0) Red Cell Distribution Width 14.9% (12.3-15.4) Platelet Count 233bil/L (150-400) Neutrophils (%) (Auto) 60.2% (40-74) Lymphocytes (%) (Auto) 31.2% (14-46) Monocytes (%) (Auto) 8.0% (4-12) Eosinophils (%) (Auto) 0.2% (0-5) Basophils (%) (Auto) 0.1% (0-3) Test 10/24/16 06:00 Sodium Level 134mEq/L (134-144) Potassium Level 4.7mEq/L (3.5-5.2) Chloride Level 95mEq/L (97-108) Carbon Dioxide Level 27mmol/L (18-29) Blood Urea Nitrogen 16mg/dL (8-27) Creatinine 0.48mg/dL (0.57-1.00) Estimat Glomerular Filtration Rate 187mL/min (>59) Glucose Level 193mg/dL (60-99) Calcium Level 8.7mg/dL (8.5-10.1) Phosphorus Level 4.1mg/dL (2.5-4.9) Magnesium Level 1.8mg/dL (1.6-2.6) Total Bilirubin 0.5mg/dL (0.0-1.2) Aspartate Amino Transf (AST/SGOT) 36U/L (0-50) Alanine Aminotransferase (ALT/SGPT) 48U/L (0-32) Alkaline Phosphatase 128U/L (25-165) Total Protein 6.0g/dL (6.4-8.4) Albumin 3.5g/dL (3.4-5.0) Discharge Medications Discharge Medications Atorvastatin Calcium (Atorvastatin Calcium) 10 Mg Tablet 10 MG PO QPM (Reported ) Baclofen (Baclofen) 20 Mg Tablet 20 MG PO QID 6AM,NOON,5PM,9PM (Reported) Bisacodyl (Dulcolax Rectal) 10 Mg Supp.rect 10 MG RC every 3 days (Reported) Cholecalciferol (Vitamin D3) (Vitamin D3) 5,000 Unit Tablet 5,000 UNIT PO DAILY (Reported) Docusate Sodium (Docusate Sodium) 250 Mg Capsule 250 MG PO DAILY (Reported) Insulin Glargine (Lantus U100 Insulin Vial) 100 Unit/Ml Vial 5 UNIT SUBQ HS ( Reported) Metoprolol Tartrate (Metoprolol Tartrate) 25 Mg Tablet 25 MG PO BID (Reported) Pantoprazole DR (Pantoprazole DR) 40 Mg Tablet.dr 40 MG PO DAILY (Reported) Phenytoin Sodium Extended (Phenytoin Sodium Extended) 200 Mg Capsule 400 MG PO DAILY Prescribed by: NINI RICH MD Pramipexole Dihydrochloride (Pramipexole Dihydrochloride) 0.25 Mg Tablet 0.25 MG PO HS (Reported) Pramoxine HCl/Calamine (Caladryl 1%-8% Lotion) 1 %-8 % Lotion 177 ML TP BID ( Reported) Pregabalin (Lyrica) 75 Mg Capsule 75 MG PO QID 8am,noon,6pm,10p (Reported) As needed Acetaminophen (Acetaminophen) 325 Mg Tablet 650 MG PO q6 hours PRN PRN For Pain (Reported) Guaifenesin/Dextromethorphan (Robitussin Cough-Chest Dm Liq) 200 Mg-10 Mg/5 Ml Liquid 5 ML PO q4 hours PRN PRN For Cough (Reported) Hydrocodone-Acetaminophen 5-325 mg (Hydrocodone-Acetaminophen 5-325 mg) 1 Each Tablet 1 TAB PO QID PRN PRN For Pain (Reported) Insulin Human Lispro (HumaLOG U100 Insulin Vial) 100 Unit/Ml Unit 0-12 UNIT SUBQ TIDWM PRN PRN sliding scale (Reported) Check blood sugars before meals and at bedtime. Use correction factor only before meals. Blood Sugar Lispro Correction: <151, 0 units; 151-175, 1 unit; 176-200, 2 units; 201-225, 3 units; 226-250, 4 units; 251-275, 5 units; 276-300 , 6 units; 301-325, 7 units; 326-350, 8 units; 351-375, 9 units; 376-400, 10 units; >400, 12 units. Insulin Human Lispro (HumaLOG U100 Insulin Vial) 100 Unit/Ml Unit 0-5 UNIT SUBQ HS PRN PRN sliding scale (Reported) Check blood sugars before meals and at bedtime. Use correction factor only before meals. Blood Sugar Lispro Correction: <151, 0 units; 151-175, 1 unit; 176-200, 2 units; 201-225, 3 units; 226-250, 4 units; 251-275, 5 units; 276-300 , 6 units; 301-325, 7 units; 326-350, 8 units; 351-375, 9 units; 376-400, 10 units; >400, 12 units. Lidocaine HCl (Lidocaine HCl) 28.35 Gm Cream..g. 4 % TOP DAILY PRN PRN 1 HR PRE CATH ACCESS (Reported) APPLY TOPICALLY TO CATH SITE 1 HOUR BEFORE ACCESS. Loperamide (Loperamide) 2 Mg Capsule 2 MG PO Q4H PRN PRN For Diarrhea or Loose Stool (Reported) Magnesium Hydroxide (Milk of Magnesia) 400 Mg/5 Ml Oral.susp 30 ML PO DAILY PRN PRN For Constipation (Reported) Polyethylene Glycol 3350 (Miralax) 17 Gm Powd.pack 17 GM PO DAILY PRN PRN For Constipation (Reported) Sennosides (Senna) 8.6 Mg Tablet 8.6-17.2 MG PO BID PRN PRN For Constipation ( Reported) Miscellaneous Medications ([Dexamethasone]) 2 MG TABLET 4 MG PO take 4mg twice a day for 4days take 4mg once a day for 4days take 2mg once a day for 4days Prescribed by: NINI RICH MD Additional med instructions Dilantin ER increased from 300 to 400mg, now level is in therapeutic range Please follow Decadron tapering schedule, directed in instruction on RX Followup Plan Disposition: SNF Follow-up plan Please follow up with your neurooncologist as scheduled. Discharge Diet: No restrictions Discharge Activity: No restrictions Patient Instructions You were hospitalized with probable seizure episode, treated with increased dosage of dilantin and steroid. Instruction for SNF Please follow medicine strictly Please follow up with Neurooncology at for further treatment, call to set up appointment [phone] Follow-up with PCP in: 2 weeks Time spent 65min Nini Rich MD Oct 25, 2016 20:32
== END 2016-10-24 16:41 ==
LOC: EDUNIT# 18:33 → SED 18:33 → EDBD 18:33 → MPC 10-20 03:29
PROVIDERS: ADMIT Specialist; ATTEND Specialist
DX: G40.909 Epilepsy, unspecified, not intractable, without status epilepticus (principal); D32.9 Benign neoplasm of meninges, unspecified; Z98.890 Other specified postprocedural states; R50.9 Fever, unspecified; E11.9 Type 2 diabetes mellitus without complications; Z79.4 Long term (current) use of insulin; G35 Multiple sclerosis; G82.20 Paraplegia, unspecified; E78.5 Hyperlipidemia, unspecified; I10 Essential (primary) hypertension; K59.09 Other constipation; G89.29 Other chronic pain; M24.50 Contracture, unspecified joint; N31.2 Flaccid neuropathic bladder, not elsewhere classified; Z93.6 Other artificial openings of urinary tract status; Z86.14 Personal history of Methicillin resistant Staphylococcus aureus infection
CPT/HCPCS: 36415; 70450; 70553; 71010; 80048; 80053; 80185; 81000; 82308; 82375; 82803; 83036; 83735; 84100; 84134; 84484; 85025; 87040; 87086; 87088; 92610; 93005; 94640; 94664; 95816; 96361; 96374; 96375; 96376; 99285; A9585; G0378; G8996; G8997; J0131; J1100; J1650; J1815; J2060; J3490; J7030; J7050; J7620; Q2009